=== PATIENT | male | born 1960 | race Two or more races ===

== ENCOUNTER 2024-07-21 10:51 | Emergency (ER) | payer OTHER, MEDICARE ==
[~2024-07-21] VITALS: Ht 177.8 cm; Wt 100.7 kg
[2024-07-21 11:31] LABS: Basophils # (auto) 0 10 ^3/uL (0-0.2); Basophils % (auto) 0.6 % (0.0-2.0); Eosinophils # (auto) 0.1 10 ^3/uL (0-0.8); Eosinophils % (auto) 2.9 % (0.0-7.0); Hematocrit 45.7 % (41.0-53.0); Hemoglobin 15.2 g/dL (13.5-17.5); Lymphocytes # (auto) 1.5 10 ^3/uL (0.4-5.4); Lymphocytes % (auto) 32.4 % (10.0-50.0); Mean Corpuscular Hemoglobin 28.2 pg (28.0-32.0); Mean Corpuscular Hgb Conc. 33.2 g/dL (32.0-36.0); Mean Corpuscular Volume 84.7 fL (80.0-100.0); Monocytes # (auto) 0.4 10 ^3/uL (0-1.3); Monocytes % (auto) 8.9 % (0.0-12.0); Neutrophils # (auto) 2.5 10 ^3/uL (1.6-8.6); Neutrophils % (auto) 55.2 % (37.0-80.0); Nucleated Red Blood Cells % 0.1 %; Platelet Count (auto) 228 10^3/uL (140-450); Red Cell Distribution Width 13.8 % (11.8-14.3); White Blood Cell 4.6 10^3/uL (4.4-10.8)
[2024-07-21 11:58] VITALS: BP 135/83; PULSE 88; RESP 18; TEMP 98.3; O2SAT 99
[2024-07-21 12:05] LABS: Chloride 106 mmol/L (98-107); Potassium 3.6 mmol/L (3.5-5.1); Sodium 143 mmol/L (136-145)
[2024-07-21 12:06] LABS: Anion Gap 8 (5-15); Calcium 10.1 mg/dL (8.7-10.4); Carbon Dioxide 29 mmol/L (20-31)
[2024-07-21 12:11] LABS: BUN/Creatinine Ratio 9.8 (10.0-20.0); Blood Urea Nitrogen 10 mg/dL (9-23); Glucose 99 mg/dL (74-106)
[2024-07-21 12:17] LABS: Urine Bacteria None Seen /hpf (None Seen); Urine WBC None Seen /hpf (0 - 3)
--- NOTE | 2024-07-21 12:18 | DVH ---
EXAM: US TESTICULAR ULTRASOUND HISTORY: swelling COMPARISON: None TECHNIQUE: Grayscale and color Doppler imaging of the scrotum with spectral analysis performed. FINDINGS: RIGHT TESTICLE: Normal in size and echotexture, measuring 4.3 cm in long axis. Doppler interrogatio n is unremarkable. RIGHT EPIDIDYMIS: Unremarkable. LEFT TESTICLE: Normal in size and echotexture, measuring 4.4 cm in long axis. Doppler interrogation is unremarkable. LEFT EPIDIDYMIS: Unremarkable. OTHER: Large left hydrocele with a volume of 432 mL containing floating debris. No scrotal wall marleny a noted. No varicocele is noted. IMPRESSION: 1. Large left hydrocele with a volume of 432 mL . 2. No sonographic evidence of torsion or epididymal orchitis.
[2024-07-21 12:25] LABS: Urine Blood Negative /uL (Negative); Urine Clarity Clear (Clear); Urine Color Light-Yellow (Yellow); Urine Protein, UAD Negative (Negative); Urine Specific Gravity 1.017 (1.001-1.035); Urine Urobilinogen Normal (Negative)
--- NOTE | 2024-07-21 12:35 | ED.PDOC ---
General HPI Comments 64 year old male presents for L scrotal swelling Started months ago after doing [place] Denies Pain Only Swelling Denies urine changes Chief Complaint: Testicle Pain Time Seen by MD: 11:05 Primary Care Provider: JOHNNA Reviewed notes: Nurses Notes, Medications, Allergies Allergies: Coded Allergies: NO KNOWN ALLERGIES (Unverified , 07/21/24) Information Source: Patient Mode of Arrival: Ambulatory Past Medical History PAST MEDICAL HISTORY: Denies Family History Family History: Reviewed,noncontributory to illness Social History Smoker: Non-Smoker Alcohol: Denies ETOH Use Drugs: Denies Drug Use All Other Systems: Reviewed and Negative (Per HPI) Physical Exam General Appearance: No Apparent Distress, Normal HEENT: Normal ENT Inspection, Pharynx Normal, TMs Normal Neck: Full Range of Motion, Non-Tender, Normal, Normal Inspection Respiratory: Chest Non-Tender, Lungs Clear, No Accessory Muscle Use, No Respi ratory Distress, Normal Breath Sounds Cardiovascular: No Edema, No JVD, No Murmur, No Gallop, Normal Peripheral Pulses, Regular Rate/Rhythm Breast Exam: Deferred Gastrointestinal: No Organomegaly, Non Tender, No Pulsatile Mass, Normal Bowel Sounds, Soft Genitalia: Scrotum (L swelling no ttp) Pelvic: Deferred Rectal: Deferred Extremities: No calf tenderness, Normal capillary refill, Normal inspection, Normal range of motion, Non-tender, No pedal edema Musculoskeletal : Apperance: Normal Neurologic: Alert, filter assembler II-XII nml as Tested, No Motor Deficits, Normal Affect, Normal Mood, No Sensory Deficits Cerebellar Function: Normal Reflexes: Normal Skin: Dry, Normal Color, Warm Lymphatic: No Adenopathy Was a procedure done? Was a procedure done?: No Differential Diagnosis Kidney stone (Female): Other Urinary Problem (Male): Epididymitis, Prostatitis X-Ray, Labs, Meds, VS Vital Signs Date Time Temp Pulse Resp B/P (MAP) Pulse Ox O2 Delivery O2 Flow Rate FiO2 07/21/24 11:58 88 18 99 Room Air 07/21/24 11:58 98.3 88 18 135/83 (100) 99 98.3 07/21/24 11:05 98.3 88 18 135/83 (100) 99 Lab Test 07/21/24 11:15 07/21/24 11:06 Range/Units White Blood Count 4.6 4.4-10.8 10^3/uL Red Blood Count 5.40 4.5-5.90 10^6/uL Hemoglobin 15.2 13.5-17.5 g/dL Hematocrit 45.7 41.0-53.0 % Mean Corpuscular Volume 84.7 80.0-100.0 fL Mean Corpuscular Hemoglobin 28.2 28.0-32.0 pg Mean Corpuscular Hemoglobin Concent 33.2 32.0-36.0 g/dL Red Cell Distribution Width 13.8 11.8-14.3 % Platelet Count 228 140-450 10^3/uL Mean Platelet Volume 7.2 6.9-10.8 fL Neutrophils (%) (Auto) 55.2 37.0-80.0 % Lymphocytes (%) (Auto) 32.4 10.0-50.0 % Monocytes (%) (Auto) 8.9 0.0-12.0 % Eosinophils (%) (Auto) 2.9 0.0-7.0 % Basophils (%) (Auto) 0.6 0.0-2.0 % Neutrophils # (Auto) 2.5 1.6-8.6 10 ^3/uL Lymphocytes # (Auto) 1.5 0.4-5.4 10 ^3/uL Monocytes # (Auto) 0.4 0-1.3 10 ^3/uL Eosinophils # (Auto) 0.1 0-0.8 10 ^3/uL Basophils # (Auto) 0 0-0.2 10 ^3/uL Nucleated Red Blood Cells 0.1 % Sodium Level 143 136-145 mmol/L Potassium Level 3.6 3.5-5.1 mmol/L Chloride Level 106 98-107 mmol/L Carbon Dioxide Level 29 20-31 mmol/L Anion Gap 8 5-15 Blood Urea Nitrogen 10 9-23 mg/dL Creatinine 1.02 0.700-1.30 mg/dL Glomerular Filtration Rate Calc 82 >90 mL/min BUN/Creatinine Ratio 9.8 L 10.0-20.0 Serum Glucose 99 74-106 mg/dL Calcium Level 10.1 8.7-10.4 mg/dL Urine Color Light-yellow Yellow Urine Clarity Clear Clear Urine pH 7.0 5.0-9.0 Urine Specific [place] 1.017 1.001-1.035 Urine Protein Negative Negative Urine Ketones Negative Negative Urine Blood Negative Negative /uL Urine Nitrite Negative Negative Urine Bilirubin Negative Negative Urine Urobilinogen Normal Negative mg/dL Urine Leukocyte Esterase Negative Negative /uL Urine RBC <1 0 - 3 /hpf Urine WBC None seen 0 - 3 /hpf Urine Squamous Epithelial Cells None seen <5 /hpf Urine Bacteria None seen None Seen /hpf Urine Glucose Normal Normal mg/dL Chlamydia trachomatis (WAN) Pending Neisseria gonorrhoeae (WAN) Pending X-Ray, Labs, Meds, VS Comment Testicular ultrasound shows trace hydrocele. Ultrasound interpreted by radiologist and reviewed by me. Presentation of symptoms are consistent with hydrocele. Education provided for patient to follow-up with urologist within 24 to 48 hours. Usually hydroceles resolve on their own, no need for surgical intervention. Elevate scrotum to help decrease swelling. Wear jockstrap for support. Take [id number] Tylenol or ibuprofen (take with food) as directed and as needed for pain management. Patient is stable for discharge at this time. External notes reviewed. Test results and diagnostic imaging interpreted. All diagnostic findings, discharge care, education and instructions provided Follow-up with PCP in 2 to 3 days Patient verbalized understanding and agreed to treatment plan Vital signs stable, afebrile, no acute distress noted Patient ambulatory with strong steady gait Advised to return precautions for any new or worsening symptoms, return to ER immediately for re-evaluation Patient is aware that the purpose of this visit was for an acute medical emergency requiring emergent stabilization. Chronic conditions, including malignancies have not been ruled out. Patient is instructed to follow up with PCP as directed and discharge instructions for continued care and workup. If unable to arrange follow-up, patient is to return to the emergency department for reassessment. Patient (parent or legal guardian if applicable) was given verbal and written discharge instructions and acknowledges understanding. Time of 1ST Reevaluation: 12:30 Reevaluation 1ST: Improved Patient Education/Counseling: Diagnosis, Treatment Family Education/Counseling: Diagnosis, Treatment Departure 1 Departure Time of Disposition: 12:41 Impression: Primary Impression: Hydrocele in adult Disposition: 01 HOME / SELF CARE / HOMELESS Condition: Stable Discharged With: Self Critical Care Note Critical Care Time?: No Stability Stability form required: No Heart Score Heart Score: Heart Score Response (Comments) Value History N/A 0 EKG N/A 0 Age N/A 0 Risk Factors N/A 0 Troponin N/A 0 Total 0 FRANKLIN MARTINS NP Jul 21, 2024 12:35
[2024-07-23 10:06] LABS: Chlamydia Trachomatis, NAA Negative (Negative); Neisseria gonorrhoeae, NAA Negative (Negative)
== END 2024-07-21 13:09 | disposition home or self-care (01) ==
LOC: ER 10:51
DX: N43.3 Hydrocele, unspecified (principal)
CPT/HCPCS: 36415; 76870; 80048; 81001; 85025

== ENCOUNTER 2025-03-07 06:29 | Inpatient (IN) | payer OTHER, MEDICARE ==
[~2025-03-07] VITALS: Ht 177.8 cm; Wt 104.6 kg
--- NOTE | 2025-03-07 06:51 | ED.PDOC ---
GI ASSESSMENT HPI Comments 64 y/o M, with PMHx of HTN presents to the ED for CC of abdominal pain. Patient states, he has been experiencing mid-abdominal pain x1day. Patient reports, pain to be tight in nature feeling as if there were a waist band around his stomach. Patient comments, on having a normal bowel movement as of earlier this morning (03/07/25). Patient denies nausea, vomiting, or diarrhea. Chief Complaint: Abdominal Pain Time Seen by MD: 06:45 Primary Care Provider: JOHNNA Reviewed Notes: Nurses Notes, Medications, Allergies Allergies: Coded Allergies: NO KNOWN ALLERGIES (Unverified , 07/21/24) Information Source: Patient Mode of Arrival: Ambulatory Timing: Days Duration: Since onset Prehospital treatment: None Quality: Other (tightness) Vomitus: None Stool: Normal Severity: Moderate Recent: None Recent Hx of: None Pain Location: Diffuse Modifying Factors: Nothing Associated sign and symptoms: Abdominal Pain Past Medical History PAST MEDICAL HISTORY: HTN Surgical History: Denies all surgeries Family History Family History: Reviewed,noncontributory to illness Social History Smoker: Non-Smoker Alcohol: Denies ETOH Use Drugs: Denies Drug Use Lives In: Home Constitutional: denies: chills, diaphoresis, fatigue, fever, malaise, sweats, weakness, others EENTM: denies: blurred vision, double vision, ear bleeding, ear discharge, ear drainage, ear pain, ear ringing, eye pain, eye redness, hearing loss, mouth pain, mouth swelling, nasal discharge, nose bleeding, nose congestion, nose pain, photophobia, tearing, throat pain, throat swelling, voice changes, others Respiratory: denies: cough, hemoptysis, orthopnea, SOB at rest, shortness of breath, SOB with excertion, stridor, wheezing, others Cardiovascular: denies: chest pain, dizzy spells, diaphoresis, Dyspnea on exertion, edema, irregular heart beat, left arm pain, lightheadedness, palpitations, PND, syncope, others Gastrointestinal: reports: abdominal pain; denies: abdomen distended, blood streaked bowels, constipated, diarrhea, dysphagia, difficulty swallowing, hematemesis, melena, nausea, poor appetite, poor fluid intake, rectal bleeding, rectal pain, vomiting, others Genitourinary: denies: burning, dysuria, flank pain, frequency, hematuria, incontinence, penile discharge, penile sore, pain, testicle pain, testicle swelling, urgency, others Neurological: denies: dizziness, fainting, headache, left sided numbness, left sided weakness, numbness, paresthesia, pre-existing deficit, right sided numbness, right sided weakness, seizure, speech problems, tingling, tremors, weakness, others Musculoskeletal: denies: back pain, gout, joint pain, joint swelling, muscle pain, muscle stiffness, neck pain, others Integumetry: denies: bruises, change in color, change in hair/nails, dryness, laceration, lesions, lumps, rash, wounds, others Allergic/Immunocompromised: denies: Difficulty Healing, Frequent Infections, Hives, Itching, others Hematologic/Lymphatic: denies: anemia, blood clots, easy bleeding, easy bruising, swollen glands, others Endocrine: denies: excessive hunger, excessive sweating, excessive thirst, excessive urination, flushing, intolerance to cold, intolerance to heat, un explained weight gain, unexplained weight loss, others Psychiatric: denies: anxiety, bipolar disorder, depression, hopeless, panic disorder, schizophrenia, sleepless, suicidal, others All Other Systems: Reviewed and Negative Physical Exam General Appearance: No Apparent Distress, Normal HEENT: Normal ENT Inspection, Pharynx Normal Neck: Full Range of Motion, Non-Tender, Normal, Normal Inspection Respiratory: Chest Non-Tender, Lungs Clear, No Accessory Muscle Use, No Respiratory Distress, Normal Breath Sounds Cardiovascular: No Edema, No Murmur, No Gallop, Normal Peripheral Pulses, Regular Rate/Rhythm Breast Exam: Deferred Gastrointestinal: Diffuse, No Organomegaly, No Pulsatile Mass, Normal Bowel Sounds, Tenderness Genitalia: Deferred Pelvic: Deferred Rectal: Deferred Extremities: No calf tenderness, Normal capillary refill, Normal inspection, Normal range of motion, Non-tender, No pedal edema Musculoskeletal : Apperance: Normal Neurologic: Alert, lining printer II-XII nml as Tested, No Motor Deficits, Normal Affect, Normal Mood, No Sensory Deficits Cerebellar Function: Normal Reflexes: Normal Skin: Dry, Normal Color, Warm Lymphatic: No Adenopathy Was a procedure done? Was a procedure done?: No GI differential Dx Differential Diagnosis: Bowel Obstruction, Constipation, Diverticular disease, Gastritis/PUD, Gastroenteritis, Inflammatory BD, Electrolyte Imbalance, Food Poisoning, Bacterial, Viral X-Ray, Labs, Meds, VS Vital Signs Date Time Temp Pulse Resp B/P (MAP) Pulse Ox O2 Delivery O2 Flow Rate FiO2 03/07/25 06:59 97 18 142/85 03/07/25 06:52 97 18 96 Room Air* 0 21 03/07/25 06:51 97.8 97 18 142/85 (104) 96 97.8 03/07/25 06:35 97.8 97 18 133/88 (103) 96 97.8 Lab Test 03/07/25 07:00 Range/Units White Blood Count 10.0 4.4-10.8 10^3/uL Red Blood Count 5.91 H 4.5-5.90 10^6/uL Hemoglobin 16.4 13.5-17.5 g/dL Hematocrit 49.1 41.0-53.0 % Mean Corpuscular Volume 83.1 80.0-100.0 fL Mean Corpuscular Hemoglobin 27.7 L 28.0-32.0 pg Mean Corpuscular Hemoglobin Concent 33.3 32.0-36.0 g/dL Red Cell Distribution Width 14.8 H 11.8-14.3 % Platelet Count 242 140-450 10^3/uL Mean Platelet Volume 7.6 6.9-10.8 fL Neutrophils (%) (Auto) 82.6 H 37.0-80.0 % Lymphocytes (%) (Auto) 12.4 10.0-50.0 % Monocytes (%) (Auto) 4.3 0.0-12.0 % Eosinophils (%) (Auto) 0.4 0.0-7.0 % Basophils (%) (Auto) 0.3 0.0-2.0 % Neutrophils # (Auto) 8.3 1.6-8.6 10 ^3/uL Lymphocytes # (Auto) 1.2 0.4-5.4 10 ^3/uL Monocytes # (Auto) 0.4 0-1.3 10 ^3/uL Eosinophils # (Auto) 0 0-0.8 10 ^3/uL Basophils # (Auto) 0 0-0.2 10 ^3/uL Nucleated Red Blood Cells 0.1 % Sodium Level 142 136-145 mmol/L Potassium Level 3.4 L 3.5-5.1 mmol/L Chloride Level 104 98-107 mmol/L Carbon Dioxide Level 27 20-31 mmol/L Anion Gap 11 5-15 Blood Urea Nitrogen 10 9-23 mg/dL Creatinine 1.11 0.700-1.30 mg/dL Glomerular Filtration Rate Calc 74 >90 mL/min BUN/Creatinine Ratio 9.0 L 10.0-20.0 Serum Glucose 125 H 74-106 mg/dL Calcium Level 10.2 8.7-10.4 mg/dL Total Bilirubin 0.6 0.2-1.0 mg/dL Aspartate Amino Transferase (AST) 25 13-40 U/L Alanine Aminotransferase (ALT) 21 7-40 U/L Alkaline Phosphatase 132 H 46-116 U/L Troponin I High Sensitivity 3 L </=54 ng/L Total Protein 8.3 H 5.7-8.2 g/dL Albumin 5.0 H 3.2-4.8 g/dL Lipase 34 12-53 U/L Current Medications Medications (Trade) Dose Ordered Sig/Giovani Route Start Time Stop Time Status Last Admin Sodium Chloride 1,000 ml @ 1,000 mls/hr Q1H ONCE IV 03/07/25 06:45 03/07/25 07:44 DC 03/07/25 06:59 Ondansetron HCl (Zofran) 4 mg ONCE ONCE IV 03/07/25 06:45 03/07/25 06:47 DC 03/07/25 06:58 Morphine Sulfate 4 mg ONCE ONCE IV 03/07/25 06:45 03/07/25 06:47 DC 03/07/25 06:59 [place] [address] Ph: [phone] DIAGNOSTIC IMAGING Diagnostic Imaging Report : [id number] Signed PATIENT: RERE MERCEDES ACCT: [id number] UNIT: [id number] : 1960 LOC: ER ROOM / BED: / AGE / SEX: 64 / M ADM STATUS: REG ER SERVICE ORDERING PHYSICIAN: CHASITY MATTHEW MD PROCEDURE(s): CXRP - CHEST PORTABLE REASON: abdominal pain ORDER NUMBER(s): [id number], ACCESSION NUMBER(s): [id number] CLINICAL INFORMATION: Pain. TECHNIQUE: Single frontal chest radiograph was obtained. COMPARISON: None FINDINGS: Lungs: Clear. Cardiac: Heart size is within normal limits. Pulmonary vasculature: Unremarkable. Mediastinum/pam: Unremarkable. Bones: No acute osseous abnormality identified. Other: No other significant findings. IMPRESSION: No evidence of acute disease in the chest. ATED BY: MONROE QUACH DO DICTATED DATE/TIME: 03/07/25730 SIGNED BY: MONROE QUACH DO SIGNED DATE/TIME: 03/07/25730 CC: [place] [address] Ph: [phone] DIAGNOSTIC IMAGING Diagnostic Imaging Report : [id number] Signed PATIENT: RERE MERCEDES ACCT: [id number] UNIT: [id number] : 1960 LOC: ER ROOM / BED: / AGE / SEX: 64 / M ADM STATUS: REG ER SERVICE 4 ORDERING PHYSICIAN: CHASITY MATTHEW MD PROCEDURE(s): ABPLIV - CT AB PEL WITH IV CON ONLY REASON: abdominal pain ORDER NUMBER(s): [id number], ACCESSION NUMBER(s): [id number] Exam: CT CT AB PEL WITH IV CON ONLY History: abdominal pain Comparison Study: None Contrast: Type of contrast: Omnipaque 300 Contrast injected: 100 mL Contrast wasted: 0 TECHNIQUE: CT of the abdomen pelvis was performed with intravenous contrast. Coronal and sagittal reformatted images are submitted. Radiation Dose Information: CT Dose: CTDI volume is 16.98 mGy. Dose-length product is 1199.64 mGy*cm FINDINGS: Lung Bases: No acute or significant lung base finding. Normal heart size. No pleural or pericardial effusion. Liver: The liver is normal in size. No focal lesions. Normal hepatic vascular enhancement. Gallbladder and Biliary Tree: The gallbladder is unremarkable. No biliary ductal dilatation. Spleen: Unremarkable. Pancreas: The pancreas is normal in appearance without focal lesions or abnormal enhancement. Adrenal Glands: Unremarkable Kidneys: Kidneys demonstrate normal symmetric enhancement without focal lesions, calculi or hydronephrosis. Bladder: Unremarkable Bowel: Fluid distention of the stomach. There are dilated fluid-filled small bowel loops with mesenteric fat stranding and mesenteric edema. There is a abrupt transition to collapsed distal small bowel loops in the right lower quadrant where there is fecalized small bowel loop. Findings are consistent with high-grade small bowel obstruction. Colon is underdistended. No findings to suggest acute appendicitis. Peritoneum: No pneumoperitoneum. No ascites. Lymphadenopathy: No mesenteric, retroperitoneal or periportal lymphadenopathy. Abdominal Wall and Mesentery: Unremarkable. Vasculature: The visualized abdominal aorta is normal in size and caliber. Abdominal and pelvic vessels demonstrate normal enhancement. Pelvic Organs: Very large left hydrocele. There is a cystic structure within the scrotal sac and calcification. Musculoskeletal: No aggressive focal bony lesions, acute fractures or dislocation. Soft tissues: Unremarkable. IMPRESSION: 1. High-grade small bowel obstruction with transition in the right lower quadrant adjacent to the fecalized small bowel loop. Mesenteric edema. 2. Very large left hydrocele containing a possible cystic mass. Testicular ultr asound recommended. All CT scans at this medical facility are performed using dose modulation techniques as appropriate to a performed exam including the following: Automated exposure control was utilized; adjustment of the MA and/or KV according to patie nt size; and use of iterative reconstruction technique. ATED BY: SHAN MERCEDES MD DICTATED DATE/TIME: 03/07/25839 SIGNED BY: SHAN MERCEDES MD SIGNED DATE/TIME: 03/07/25839 CC: Time of 1ST Reevaluation: 07:15 Reevaluation 1ST: Unchanged Patient Education/Counseling: Diagnosis, Treatment Family Education/Counseling: No Family Present SEPSIS Sepsis Screen Physician Orders Ct Ab Pel With Iv Con Only (03/07/25 06:45) Chest Portable (03/07/25 06:45) Urinalysis (03/07/25 06:45) Ng To Lis (03/07/25 08:50) Place Ng (03/07/25 08:50) * Surgical Consult (03/07/25 ) NS (03/07/25 09:00) Ondansetron Hcl (Zofran) (03/07/25 09:00) Morphine Sulfate Injection (03/07/25 09:00) Testicular Ultrasound (03/07/25 08:50) Vital Signs Date Time Temp Pulse Resp B/P (MAP) Pulse Ox O2 Delivery O2 Flow Rate FiO2 03/07/25 06:59 97 18 142/85 03/07/25 06:52 97 18 96 Room Air* 0 21 03/07/25 06:51 97.8 97 18 142/85 (104) 96 97.8 03/07/25 06:35 97.8 97 18 133/88 (103) 96 97.8 Laboratory Tests Test 03/07/25 07:00 White Blood Count 10.0 10^3/uL (4.4-10.8) Medications Medications Dose Ordered Sig/Giovani Route Start Time Stop Time Status Last Admin Dose Admin Morphine Sulfate 4 mg ONCE ONCE IV 03/07/25 06:45 03/07/25 06:47 DC 03/07/25 06:59 Ondansetron HCl 4 mg ONCE ONCE IV 03/07/25 06:45 03/07/25 06:47 DC 03/07/25 06:58 Sodium Chloride 1,000 ml @ 1,000 mls/hr Q1H ONCE IV 03/07/25 06:45 03/07/25 07:44 DC 03/07/25 06:59 Departure 1 Departure Time of Disposition: 08:53 (Patient presented with abdominal pain that was concerning for possible appendicits, gastritis, cholecystitis, colitis, gastroenteritis, sbo, or orther possible surgical emergency. Data: 1. I ordered and reviewed the result of at least 3 labs including a CBC, BMP, and Urinalysis. 2. I independently interpreted the following tests: CT Abdoment and Pelvis is concerning for small bowel obstruction .Risk:This patient has a high risk of morbidity due to further diagnostic testing or treatment and may suffer from an acute abdominal process disorder. Workup reveals small-bowel obstruction and patient should be admitted for further workup. and possible expert consultation. ) Impression: Primary Impression: Small bowel obstruction Additional Impression: Testicular mass Disposition: ADMITTED INPATIENT Admit to: Med Surg Condition: Guarded Critical Care Note Critical Care Time?: Yes Critical care comment: Intractable abdominal pain Authorized and Performed by: Chasity Matthew MD Total critical care time: Approximately 44 minutes Due to a high probability of clinically significant, life threatening deterioration, the patient required my highest level of preparedness to intervene emergently and I personally spent this critical care time directly and personally managing the patient. This critical care time included obtaining a history; examining the patient; pulse oximetry; ordering and review of studies; arranging urgent treatment with development of a management plan; evaluation of patient's response to treatment; frequent reassessment; and, discussions with other providers. This critical care time was performed to assess and manage the high probability of imminent, life-threatening deterioration that could result in multi-organ failure. It was exclusive of separately billable procedures and treating other patients and teaching time. Please see my other sections and the rest of the note for further information on patient assessment and treatment. Stability Stability form required: No Heart Score Heart Score: Heart Score Response (Comments) Value History N/A 0 EKG N/A 0 Age N/A 0 Risk Factors N/A 0 Troponin N/A 0 Total 0 I personally scribed for CHASITY MATTHEW MD ([email or web address]) on 03/07/25 at 06:51. Electronically submitted by Ayleen Jordan ([email or web address]). I personally scribed for CHASITY MATTHEW MD ([email or web address]) on 03/07/25 at 07:36. Electronically submitted by Ayleen Jordan ([email or web address]). I personally scribed for CHASITY MATTHEW MD ([email or web address]) on 03/07/25 at 08:48. Electronically submitted by Ayleen Jordan ([email or web address]). CHASITY MATTHEW MD Mar 07, 2025 06:51
[2025-03-07 06:52] VITALS: PULSE 97; RESP 18; O2SAT 96
[2025-03-07] MEDS: ONDANSETRON HCL 4 MG/2 ML VIAL IV ONE ×2 (06:58→09:00)
[2025-03-07] MEDS: SODIUM CHLORIDE 0.9% 1,000 ML IV ONE ×2 (06:59→09:00)
[2025-03-07] MEDS: MORPHINE SULFATE 4 MG/ML SYR/VIAL IV ONE ×2 (06:59→09:00)
[2025-03-07 07:18] LABS: Hematocrit 49.1 % (41.0-53.0); Hemoglobin 16.4 g/dL (13.5-17.5); Mean Corpuscular Hemoglobin 27.7 pg (28.0-32.0); Mean Corpuscular Volume 83.1 fL (80.0-100.0); Nucleated Red Blood Cells % 0.1 %
[2025-03-07 07:25] LABS: Alanine Aminotransferase 21 U/L (7-40); Anion Gap 11 (5-15); BUN/Creatinine Ratio 9.0 (10.0-20.0); Blood Urea Nitrogen 10 mg/dL (9-23); Calcium 10.2 mg/dL (8.7-10.4); Carbon Dioxide 27 mmol/L (20-31); Chloride 104 mmol/L (98-107); Lipase 34 U/L (12-53); Sodium 142 mmol/L (136-145)
[2025-03-07 07:26] LABS: Bilirubin, Total 0.6 mg/dL (0.2-1.0)
[2025-03-07 07:31] LABS: Albumin 5.0 g/dL (3.2-4.8); Alkaline Phosphatase 132 U/L (46-116); Glucose 125 mg/dL (74-106); Potassium 3.4 mmol/L (3.5-5.1); Total Protein 8.3 g/dL (5.7-8.2)
--- NOTE | 2025-03-07 07:34 | DVH ---
CLINICAL INFORMATION: Pain. TECHNIQUE: Single frontal chest radiograph was obtained. COMPARISON: None FINDINGS: Lungs: Clear. Cardiac: Heart size is within normal limits. Pulmonary vasculature: Unremarkable. Mediastinum/pam: Unremarkable. Bones: No acute osseous abnormality identified. Other: No other significant findings. IMPRESSION: No evidence of acute disease in the chest.
[2025-03-07] MEDS: IOHEXOL 300 MG/ML 100ML BOTTLE IJ ONE (07:44)
--- NOTE | 2025-03-07 08:42 | DVH ---
Exam: CT CT AB PEL WITH IV CON ONLY History: abdominal pain Comparison Study: None Contrast: Type of contrast: Omnipaque 300 Contrast injected: 100 mL Contrast wasted: 0 TECHNIQUE: CT of the abdomen pelvis was performed with intravenous contrast. Coronal and sagittal re formatted images are submitted. Radiation Dose Information: CT Dose: CTDI volume is 16.98 mGy. Dose-length product is 1199.64 mGy*cm FINDINGS: Lung Bases: No acute or significant lung base finding. Normal heart size. No pleural or pericardial effusion. Liver: The liver is normal in size. No focal lesions. Normal hepatic vascular enhancement. Gallbladder and Biliary Tree: The gallbladder is unremarkable. No biliary ductal dilatation. Spleen: Unremarkable. Pancreas: The pancreas is normal in appearance without focal lesions or abnormal enhancement. Adrenal Glands: Unremarkable Kidneys: Kidneys demonstrate normal symmetric enhancement without focal lesions, calculi or hydroneph rosis. Bladder: Unremarkable Bowel: Fluid distention of the stomach. There are dilated fluid-filled small bowel loops with mesent humaira fat stranding and mesenteric edema. There is a abrupt transition to collapsed distal small bowel loops in the right lower quadrant where there is fecalized small bowel loop. Findings are consisten t with high-grade small bowel obstruction. Colon is underdistended. No findings to suggest acute appe ndicitis. Peritoneum: No pneumoperitoneum. No ascites. Lymphadenopathy: No mesenteric, retroperitoneal or periportal lymphadenopathy. Abdominal Wall and Mesentery: Unremarkable. Vasculature: The visualized abdominal aorta is normal in size and caliber. Abdominal and pelvic vess els demonstrate normal enhancement. Pelvic Organs: Very large left hydrocele. There is a cystic structure within the scrotal sac and calc ification. Musculoskeletal: No aggressive focal bony lesions, acute fractures or dislocation. Soft tissues: Unremarkable. IMPRESSION: 1. High-grade small bowel obstruction with transition in the right lower quadrant adjacent to the fec alized small bowel loop. Mesenteric edema. 2. Very large left hydrocele containing a possible cystic mass. Testicular ultrasound recommended. All CT scans at this medical facility are performed using dose modulation techniques as appropriate t o a performed exam including the following: Automated exposure control was utilized; adjustment of th e MA and/or KV according to patient size; and use of iterative reconstruction technique.
[2025-03-07 09:11] LABS: Urine Budding Yeast FEW /hpf (None Seen); Urine Protein, UAD Negative (Negative)
--- NOTE | 2025-03-07 10:11 | DVH ---
ULTRASOUND OF SCROTUM AND CONTENTS. INDICATION: better evaluate ct findings COMPARISON: US TESTICULAR ULTRASOUND on DOS: 07/21/24 TECHNIQUE: Multiple real-time grayscale sonographic and color and duplex Doppler images of the scrotu m and its contents were obtained. FINDINGS: The right testicle measures 2.8 x 3.0 x 4.1 cm. The left testicle measures 5.1 x 2.6 x 3.0 cm. Both testicles demonstrate homogeneous echotexture without evidence of focal lesions. The right epididymis measures 1.7 cm. The left epididymis measures 1.1 cm. Subsequent color and duplex Doppler interrogation of the testes demonstrated symmetric normal vascula r flow to both testicles. No focal areas of hyperemia were seen. Severe left hydrocele. IMPRESSION: Severe left hydrocele.
[2025-03-07] MEDS ORDERED: hydrALAZINE HCL 20 MG/ML VL IV PRN (11:00)
[2025-03-07] MEDS ORDERED: DOCUSATE SOD 100 MG CAP PO PRN (11:00)
[2025-03-07] MEDS ORDERED: ACETAMINOPHEN 650 MG RECT SUPP PR PRN (11:00)
[2025-03-07] MEDS: SODIUM CHLORIDE 0.9% 1,000 ML IV SCH (11:00)
--- NOTE | 2025-03-07 11:06 | DVHHP2 ---
History of Present Illness Reason for Visit: Abdominal pain History of Present Illness Navin Stiles is a 64-year-old male with past medical history of hypertension, and hyperlipidemia, who came to the hospital for abdominal pain. Patient states his abdominal pain began yesterday about noon. The pain was mostly epigastric at that time. Around 3-4 he was feeling better, then the pain returned after he ate dinner. When the pain returned it was more intense and radiated across his entire abdomen. This morning he was going to head to [place] for a dental appointment, but came to the ER instead due to the pain. Denies any nausea or vomiting. Patient also has severe left hydrocele. He was seen here in July of 2024 due to the enlarged testicle and was told to follow up out patient. The testicle remain swollen. He states he did see urology through the OR and he follows up with them again in June. Cardiovascular: HTN, hyperipidemia Smoke: No ALCOHOL: rare Drugs: None Lives: with Family Domestic Violence: Neg Review of Systems Constitutional: Yes: Weakness; No: Fever, Chills, Sweats, Malaise, Other Eyes: No: Pain, Vision change, Conjunctivae inflammation, Eyelid inflammation, Other, Redness ENT: No: Ear pain, Ear discharge, Nose pain, Nose discharge, Nose congestion, Mouth pain, Mouth swelling, Throat pain, Throat swelling, Other Respiratory: No: Cough, Dry, Shortness of breath, SOB with excertion, Wheezing, Hemoptysis, Pleuritic Pain, Sputum, Wheezing, Other Cardiovascular: No: Chest Pain, Palpitations, Orthopnea, Paroxysmal Noc. Dyspnea, Edema, Lt Headedness, Other Gastrointestinal: Abdominal Pain; No: Nausea, Vomiting, Diarrhea, Constipation, Melena, Hematochezia, Other Genitourinary: No Dysuria, No Frequency, No Incontinence, No Hematuria, No Retention, No Other Musculoskeletal: No: other, neck pain, shoulder pain, arm pain, back pain, hand pain, leg pain, foot pain Skin: No: Rash, Lesions, Jaundice, Bruising, Other Neurological: No: Weakness, Numbness, Incoordination, Change in speech, Confusion, Seizures, Other Allergies: Coded Allergies: NO KNOWN ALLERGIES (Unverified , 07/21/24) Medications Current Medications Medications Dose Ordered Sig/Giovani Route Start Time Stop Time Status Last Admin Dose Admin Sodium Chloride 1,000 ml @ 75 mls/hr [id number] IV 03/07/25 11:00 UNV Ondansetron HCl 4 mg Q4HP PRN IV 03/07/25 11:00 UNV Docusate Sodium 100 mg BIDPRN PRN PO 03/07/25 11:00 UNV Morphine Sulfate 2 mg Q4HPRN PRN IV 03/07/25 11:00 UNV Acetaminophen 650 mg Q6HP PRN LA 03/07/25 11:00 UNV Metronidazole 100 ml @ 100 mls/hr Q8HR IV 03/07/25 14:00 UNV Exam Vital Signs Vital Signs Date Time Temp Pulse Resp B/P (MAP) Pulse Ox O2 Delivery O2 Flow Rate FiO2 03/07/25 09:30 97.7 85 20 136/86 (103) 95 97.7 03/07/25 06:52 Room Air* 0 21 General Appearance: Alert, Oriented X3, Cooperative, mild distress HEENT: Atraumatic, PERRLA, Mucous membr. moist/pink Respiratory: Clear to auscultation, Normal air movement Cardiovascular: Regular rate, Normal S1, Normal S2, No murmurs Abdominal: Other (Hypoactive bowel sounds, abdominal pain) Extremities: No clubbing, No cyanosis, No edema, Normal pulses, No tenderness/swelling Skin: No rashes, No breakdown, No significant lesion Neuro: Normal gait, Normal speech, Strength at 5/5 X4 ext, Normal tone, Sensation intact Psych/Mental Status: Mental status NL, Mood NL Labs/Xrays Labs Test 03/07/25 07:00 03/07/25 06:40 Range/Units White Blood Count 10.0 4.4-10.8 10^3/uL Red Blood Count 5.91 H 4.5-5.90 10^6/uL Hemoglobin 16.4 13.5-17.5 g/dL Hematocrit 49.1 41.0-53.0 % Mean Corpuscular Volume 83.1 80.0-100.0 fL Mean Corpuscular Hemoglobin 27.7 L 28.0-32.0 pg Mean Corpuscular Hemoglobin Concent 33.3 32.0-36.0 g/dL Red Cell Distribution Width 14.8 H 11.8-14.3 % Platelet Count 242 140-450 10^3/uL Mean Platelet Volume 7.6 6.9-10.8 fL Neutrophils (%) (Auto) 82.6 H 37.0-80.0 % Lymphocytes (%) (Auto) 12.4 10.0-50.0 % Monocytes (%) (Auto) 4.3 0.0-12.0 % Eosinophils (%) (Auto) 0.4 0.0-7.0 % Basophils (%) (Auto) 0.3 0.0-2.0 % Neutrophils # (Auto) 8.3 1.6-8.6 10 ^3/uL Lymphocytes # (Auto) 1.2 0.4-5.4 10 ^3/uL Monocytes # (Auto) 0.4 0-1.3 10 ^3/uL Eosinophils # (Auto) 0 0-0.8 10 ^3/uL Basophils # (Auto) 0 0-0.2 10 ^3/uL Nucleated Red Blood Cells 0.1 % Sodium Level 142 136-145 mmol/L Potassium Level 3.4 L 3.5-5.1 mmol/L Chloride Level 104 98-107 mmol/L Carbon Dioxide Level 27 20-31 mmol/L Anion Gap 11 5-15 Blood Urea Nitrogen 10 9-23 mg/dL Creatinine 1.11 0.700-1.30 mg/dL Glomerular Filtration Rate Calc 74 >90 mL/min BUN/Creatinine Ratio 9.0 L 10.0-20.0 Serum Glucose 125 H 74-106 mg/dL Calcium Level 10.2 8.7-10.4 mg/dL Total Bilirubin 0.6 0.2-1.0 mg/dL Aspartate Amino Transferase (AST) 25 13-40 U/L Alanine Aminotransferase (ALT) 21 7-40 U/L Alkaline Phosphatase 132 H 46-116 U/L Troponin I High Sensitivity 3 L </=54 ng/L Total Protein 8.3 H 5.7-8.2 g/dL Albumin 5.0 H 3.2-4.8 g/dL Lipase 34 12-53 U/L Urine Color Light-yellow Yellow Urine Clarity Clear Clear Urine pH 7.5 5.0-9.0 Urine Specific [place] 1.049 H 1.001-1.035 Urine Protein Negative Negative Urine Ketones Negative Negative Urine Blood Negative Negative /uL Urine Nitrite Negative Negative Urine Bilirubin Negative Negative Urine Urobilinogen Normal Negative mg/dL Urine Leukocyte Esterase Negative Negative /uL Urine RBC 2 0 - 3 /hpf Urine Microscopic WBC 3 0-3 /HPF Urine Squamous Epithelial Cells Few <5 /hpf Urine Bacteria None seen None Seen /hpf Urine Mucus Few None Seen Urine Yeast (Budding) Few None Seen /hpf Urine Glucose Normal Normal mg/dL Exam: CT CT AB PEL WITH IV CON ONLY FINDINGS: Lung Bases: No acute or significant lung base finding. Normal heart size. No pleural or pericardial effusion. Liver: The liver is normal in size. No focal lesions. Normal hepatic vascular enhancement. Gallbladder and Biliary Tree: The gallbladder is unremarkable. No biliary ductal dilatation. Spleen: Unremarkable. Pancreas: The pancreas is normal in appearance without focal lesions or abnormal enhancement. Adrenal Glands: Unremarkable Kidneys: Kidneys demonstrate normal symmetric enhancement without focal lesions, calculi or hydronephrosis. Bladder: Unremarkable Bowel: Fluid distention of the stomach. There are dilated fluid-filled small bowel loops with mesenteric fat stranding and mesenteric edema. There is a abrupt transition to collapsed distal small bowel loops in the right lower quadrant where there is fecalized small bowel loop. Findings are consistent with high-grade small bowel obstruction. Colon is underdistended. No findings to suggest acute appendicitis. Peritoneum: No pneumoperitoneum. No ascites. Lymphadenopathy: No mesenteric, retroperitoneal or periportal lymphadenopathy. Abdominal Wall and Mesentery: Unremarkable. Vasculature: The visualized abdominal aorta is normal in size and caliber. Abdominal and pelvic vessels demonstrate normal enhancement. Pelvic Organs: Very large left hydrocele. There is a cystic structure within the scrotal sac and calcification. Musculoskeletal: No aggressive focal bony lesions, acute fractures or dislocation. Soft tissues: Unremarkable. IMPRESSION: 1. High-grade small bowel obstruction with transition in the right lower quadrant adjacent to the fecalized small bowel loop. Mesenteric edema. 2. Very large left hydrocele containing a possible cystic mass. Testicular ultrasound recommended. TECHNIQUE: Single frontal chest radiograph was obtained. FINDINGS: Lungs: Clear. Cardiac: Heart size is within normal limits. Pulmonary vasculature: Unremarkable. Mediastinum/pam: Unremarkable. Bones: No acute osseous abnormality identified. Other: No other significant findings. IMPRESSION: No evidence of acute disease in the chest. ULTRASOUND OF SCROTUM AND CONTENTS. FINDINGS: The right testicle measures 2.8 x 3.0 x 4.1 cm. The left testicle measures 5.1 x 2.6 x 3.0 cm. Both testicles demonstrate homogeneous echotexture without evidence of focal lesions. The right epididymis measures 1.7 cm. The left epididymis measures 1.1 cm. Subsequent color and duplex Doppler interrogation of the testes demonstrated symmetric normal vascular flow to both testicles. No focal areas of hyperemia were seen. Severe left hydrocele. IMPRESSION: Severe left hydrocele. Assessment/Plan Assessment/Plan Assessment: Small bowel obstruction, Severe left hydrocele, Hypertension, Hyperlipidemia, Plan: Admit to Med-Surg, Surgical consult, Urology consult, NG tube to LIS, NPO, PT/PTT, Chest X-ray, Home medications held due to NPO, Plan discussed with: Patient, Spouse My Orders Orders - IBRAHIMA LEMA Procedure Category Date Status Time Admit ADMIT 03/07/25 Transmitted 10:46 Code Status CODE 03/07/25 Transmitted 10:46 Sodium Chloride 0.9% PHA 03/07/25 Logged 11:00 Ondansetron Hcl PHA 03/07/25 Logged (Zofran) 11:00 Docusate Sodium PHA 03/07/25 Logged Capsule (Colace 11:00 Complete Blood Count LAB 03/08/25 Verified 04:00 Comprehensive LAB 03/08/25 Verified Metabolic Panel 04:00 Npo (Nothing By DIET 03/07/25 Transmitted Mouth) Diet Lunch Condition: Critical NINA 03/07/25 In Process 10:46 Morphine Sulfate PHA 03/07/25 Logged Injection 11:00 Acetaminophen PHA 03/07/25 Logged Suppository (Tylenol 11:00 Metronidazole PHA 03/07/25 Logged 500mg/100ml (Flagyl 14:00 PTPTT LAB 03/07/25 Logged 10:49 * Urology Consult CONS 03/07/25 Transmitted 10:50 Date of Service: Mar 07, 2025 Billing Provider: IBRAHIMA LEMA Common Visit Codes: 83626-PRXTUEA INP/OBS CARE (HIGH) IBRAHIMA LEMA Mar 07, 2025 11:06
[2025-03-07 11:34] LABS: INR 0.95 (0.9-1.15); Partial Thromboplastin Time 26.5 SEC (24.5-34.5); Prothrombin Time 10.1 sec (9.3-11.8)
--- NOTE | 2025-03-07 11:46 | DVH ---
CHEST RADIOGRAPH Indication: NG TUBE PLACEMENT Technique: Single frontal view of the chest was obtained COMPARISON: XY CHEST PORTABLE on DOS: 03/07/25 FINDINGS: Lines and Tubes: Nasogastric tube in satisfactory position Lungs: Clear Pleura: No effusion. No pneumothorax. Cardiomediastinal contours: Unremarkable Bones: Unremarkable IMPRESSION: Nasogastric tube in satisfactory position.
[2025-03-07 12:00] VITALS: PULSE 92; RESP 15; O2SAT 97
--- NOTE | 2025-03-07 13:36 | DVHINCON2 ---
Date of service: Mar 07, 2025 Referring Physician Hospitalist Reason for Consultation large left hydrocele History of Present Illness History Source: Patient, RN Notes, MD Notes, Old Records Exam Limitations: No limitations HPI 64 yo male admitted for bowel obstruction. Pt has hx of large left symptomatic hydrocele for the past year and is pending reevaluation in June at the [facility]. He has been wearing scrotal support for months. There has been no improvement. I offered to aspirate it at the bedside for symptom relief. Pt is aware that it is highly likely to recur and this is not definitive management. He verbalized und erstanding and asked that I proceed. Imaging was reviewed and there is no evidence of hernia or bowel contents within the scrotum. patient does not take any anticoagulation. After appropriate positioning of the scrotum on towel roll the genitalia was cleansed with betadine and an 18g angio cath was used to aspirate 850 mls of serous fluid. there was no blood loss. pt tolerated the procedure exceptionally well and reported immediate relief. Primary RN at the bedside for assistance. Review of Systems Gastrointestinal: Abdominal Pain H&P Exam Vital Signs Vital Signs Date Time Temp Pulse Resp B/P (MAP) Pulse Ox O2 Delivery O2 Flow Rate FiO2 03/07/25 11:30 88 18 147/77 (100) 95 03/07/25 09:30 97.7 97.7 03/07/25 06:52 Room Air* 0 21 General Appeara: Well developed, Well nourished, Normal Appearance Nasal Exam: Other (NG tube in place) Pulmonary/Respiratory: Normal inspection, Normal breath sounds, Chest non- tender, Lungs clear Cardiovascular/Chest: Normal inspection, Regular rate, Normal Rhythm Male Genital Exam: Other (left large hydrocele) Neuro/Mental St: Alert, Oriented Appearance: Appropriate appearance, Appropriate insight Eye contact/ Speech: Cooperative, Good eye contact, Normal speech Coordination/Gait: Normal finger->nose, Normal gait, Negative Romberg's sign Skin Exam: Normal inspection, Normal color, Warm/dry Labs/Xrays [facility] [id number] [place] [address] Ph: [phone] DIAGNOSTIC IMAGING Diagnostic Imaging Report : [id number] Signed PATIENT: RERE MERCEDES ACCT: [id number] UNIT: [id number] : 1960 LOC: ER ROOM / BED: / AGE / SEX: 64 / M ADM STATUS: REG ER SERVICE 0645 ORDERING PHYSICIAN: CHASITY MATTHEW MD PROCEDURE(s): ABPLIV - CT AB PEL WITH IV CON ONLY REASON: abdominal pain ORDER NUMBER(s): [id number], ACCESSION NUMBER(s): [id number] Exam: CT CT AB PEL WITH IV CON ONLY History: abdominal pain Comparison Study: None Contrast: Type of contrast: Omnipaque 300 Contrast injected: 100 mL Contrast wasted: 0 TECHNIQUE: CT of the abdomen pelvis was performed with intravenous contrast. Coronal and sagittal reformatted images are submitted. Radiation Dose Information: CT Dose: CTDI volume is 16.98 mGy. Dose-length product is 1199.64 mGy*cm FINDINGS: Lung Bases: No acute or significant lung base finding. Normal heart size. No pleural or pericardial effusion. Liver: The liver is normal in size. No focal lesions. Normal hepatic vascular enhancement. Gallbladder and Biliary Tree: The gallbladder is unremarkable. No biliary ductal dilatation. Spleen: Unremarkable. Pancreas: The pancreas is normal in appearance without focal lesions or abnormal enhancement. Adrenal Glands: Unremarkable Kidneys: Kidneys demonstrate normal symmetric enhancement without focal lesions, calculi or hydronephrosis. Bladder: Unremarkable Bowel: Fluid distention of the stomach. There are dilated fluid-filled small bowel loops with mesenteric fat stranding and mesenteric edema. There is a abrupt transition to collapsed distal small bowel loops in the right lower quadrant where there is fecalized small bowel loop. Findings are consistent with high-grade small bowel obstruction. Colon is underdistended. No findings to suggest acute appendicitis. Peritoneum: No pneumoperitoneum. No ascites. Lymphadenopathy: No mesenteric, retroperitoneal or periportal lymphadenopathy. Abdominal Wall and Mesentery: Unremarkable. Vasculature: The visualized abdominal aorta is normal in size and caliber. Abdominal and pelvic vessels demonstrate normal enhancement. Pelvic Organs: Very large left hydrocele. There is a cystic structure within the scrotal sac and calcification. Musculoskeletal: No aggressive focal bony lesions, acute fractures or dislocation. Soft tissues: Unremarkable. IMPRESSION: 1. High-grade small bowel obstruction with transition in the right lower quadrant adjacent to the fecalized small bowel loop. Mesenteric edema. 2. Very large left hydrocele containing a possible cystic mass. Testicular ultrasound recommended. All CT scans at this medical facility are performed using dose modulation techniques as appropriate to a performed exam including the following: Automated exposure control was utilized; adjustment of the MA and/or KV according to patient size; and use of iterative reconstruction technique. ATED BY: SHAN MERCEDES MD DICTATED DATE/TIME: 03/07/25839 SIGNED BY: SHAN MERCEDES MD SIGNED DATE/TIME: 03/07/25839 CC: [place] [id number] Ph: [phone] DIAGNOSTIC IMAGING Diagnostic Imaging Report : [id number] Signed PATIENT: RERE MERCEDES ACCT: [id number] UNIT: [id number] : 1960 LOC: ER ROOM / BED: / AGE / SEX: 64 / M ADM STATUS: REG ER SERVICE 9 ORDERING PHYSICIAN: CHASITY MATTHEW MD PROCEDURE(s): TESUS - TESTICULAR ULTRASOUND REASON: better evaluate ct findings ORDER NUMBER(s): [id number], ACCESSION NUMBER(s): [id number] ULTRASOUND OF SCROTUM AND CONTENTS. INDICATION: better evaluate ct findings COMPARISON: US TESTICULAR ULTRASOUND on DOS: 07/21/24 TECHNIQUE: Multiple real-time grayscale sonographic and color and duplex Doppler images of the scrotum and its contents were obtained. FINDINGS: The right testicle measures 2.8 x 3.0 x 4.1 cm. The left testicle measures 5.1 x 2.6 x 3.0 cm. Both testicles demonstrate homogeneous echotexture without evidence of focal lesions. The right epididymis measures 1.7 cm. The left epididymis measures 1.1 cm. Subsequent color and duplex Doppler interrogation of the testes demonstrated symmetric normal vascular flow to both testicles. No focal areas of hyperemia were seen. Severe left hydrocele. IMPRESSION: Severe left hydrocele. ATED BY: ANGEL SHIPMAN MD DICTATED DATE/TIME: 03/07/25 100 SIGNED BY: ANGEL SHIPMAN MD SIGNED DATE/TIME: 03/07/251008 CC: Labs Test 03/07/25 10:49 03/07/25 07:00 03/07/25 06:40 Range/Units Prothrombin Time 10.1 9.3-11.8 sec Prothrombin Time INR 0.95 0.9-1.15 Activated Partial Thromboplast Time 26.5 24.5-34.5 SEC White Blood Count 10.0 4.4-10.8 10^3/uL Red Blood Count 5.91 H 4.5-5.90 10^6/uL Hemoglobin 16.4 13.5-17.5 g/dL Hematocrit 49.1 41.0-53.0 % Mean Corpuscular Volume 83.1 80.0-100.0 fL Mean Corpuscular Hemoglobin 27.7 L 28.0-32.0 pg Mean Corpuscular Hemoglobin Concent 33.3 32.0-36.0 g/dL Red Cell Distribution Width 14.8 H 11.8-14.3 % Platelet Count 242 140-450 10^3/uL Mean Platelet Volume 7.6 6.9-10.8 fL Neutrophils (%) (Auto) 82.6 H 37.0-80.0 % Lymphocytes (%) (Auto) 12.4 10.0-50.0 % Monocytes (%) (Auto) 4.3 0.0-12.0 % Eosinophils (%) (Auto) 0.4 0.0-7.0 % Basophils (%) (Auto) 0.3 0.0-2.0 % Neutrophils # (Auto) 8.3 1.6-8.6 10 ^3/uL Lymphocytes # (Auto) 1.2 0.4-5.4 10 ^3/uL Monocytes # (Auto) 0.4 0-1.3 10 ^3/uL Eosinophils # (Auto) 0 0-0.8 10 ^3/uL Basophils # (Auto) 0 0-0.2 10 ^3/uL Nucleated Red Blood Cells 0.1 % Sodium Level 142 136-145 mmol/L Potassium Level 3.4 L 3.5-5.1 mmol/L Chloride Level 104 98-107 mmol/L Carbon Dioxide Level 27 20-31 mmol/L Anion Gap 11 5-15 Blood Urea Nitrogen 10 9-23 mg/dL Creatinine 1.11 0.700-1.30 mg/dL Glomerular Filtration Rate Calc 74 >90 mL/min BUN/Creatinine Ratio 9.0 L 10.0-20.0 Serum Glucose 125 H 74-106 mg/dL Calcium Level 10.2 8.7-10.4 mg/dL Total Bilirubin 0.6 0.2-1.0 mg/dL Aspartate Amino Transferase (AST) 25 13-40 U/L Alanine Aminotransferase (ALT) 21 7-40 U/L Alkaline Phosphatase 132 H 46-116 U/L Troponin I High Sensitivity 3 L </=54 ng/L Total Protein 8.3 H 5.7-8.2 g/dL Albumin 5.0 H 3.2-4.8 g/dL Lipase 34 12-53 U/L Urine Color Light-yellow Yellow Urine Clarity Clear Clear Urine pH 7.5 5.0-9.0 Urine Specific [place] 1.049 H 1.001-1.035 Urine Protein Negative Negative Urine Ketones Negative Negative Urine Blood Negative Negative /uL Urine Nitrite Negative Negative Urine Bilirubin Negative Negative Urine Urobilinogen Normal Negative mg/dL Urine Leukocyte Esterase Negative Negative /uL Urine RBC 2 0 - 3 /hpf Urine Microscopic WBC 3 0-3 /HPF Urine Squamous Epithelial Cells Few <5 /hpf Urine Bacteria None seen None Seen /hpf Urine Mucus Few None Seen Urine Yeast (Budding) Few None Seen /hpf Urine Glucose Normal Normal mg/dL Assessment/Plan Problem List: (1) Hydrocele in adult (2) Testicular mass (3) Small bowel obstruction Plan outpt left hydrocelectomy urology signing off Plan discussed with: Patient, Other KENDALL FRANK NP Mar 07, 2025 13:36
--- NOTE | 2025-03-07 14:43 | DVHINCON2 ---
Date of service: Mar 07, 2025 Allergies: Coded Allergies: NO KNOWN ALLERGIES (Unverified , 07/21/24) Current Medications Current Medications Medications (Trade) Dose Ordered Sig/Giovani Route PRN Reason Start Time Stop Time Status Last Admin Sodium Chloride 1,000 ml @ 75 mls/hr [id number] IV 03/07/25 11:00 03/07/25 11:00 Ondansetron HCl (Zofran) 4 mg Q4HP PRN IV NAUSEA / VOMITING 03/07/25 11:00 Docusate Sodium (Colace Capsule) 100 mg BIDPRN PRN PO FOR CONSTIPATION 03/07/25 11:00 Morphine Sulfate 2 mg Q4HPRN PRN IV SEVERE PAIN (7-10 PAIN SCALE) 03/07/25 11:00 Acetaminophen (Tylenol Suppository) 650 mg Q6HP PRN AR PAIN SCALE 1-3 OR TEMP>100.4 03/07/25 11:00 Metronidazole 100 ml @ 100 mls/hr Q8HR IV 03/07/25 14:00 03/07/25 14:09 Hydralazine HCl (Apresoline Injection) 10 mg Q6HP PRN IV SBP>150 03/07/25 11:00 Vital Signs Vital Signs Date Time Temp Pulse Resp B/P (MAP) Pulse Ox O2 Delivery O2 Flow Rate FiO2 03/07/25 13:30 92 15 125/84 (98) 97 03/07/25 09:30 97.7 97.7 03/07/25 06:52 Room Air* 0 21 Labs/Diagnostic Data Labs Test 03/07/25 10:49 03/07/25 07:00 03/07/25 06:40 Range/Units Prothrombin Time 10.1 9.3-11.8 sec Prothrombin Time INR 0.95 0.9-1.15 Activated Partial Thromboplast Time 26.5 24.5-34.5 SEC White Blood Count 10.0 4.4-10.8 10^3/uL Red Blood Count 5.91 H 4.5-5.90 10^6/uL Hemoglobin 16.4 13.5-17.5 g/dL Hematocrit 49.1 41.0-53.0 % Mean Corpuscular Volume 83.1 80.0-100.0 fL Mean Corpuscular Hemoglobin 27.7 L 28.0-32.0 pg Mean Corpuscular Hemoglobin Concent 33.3 32.0-36.0 g/dL Red Cell Distribution Width 14.8 H 11.8-14.3 % Platelet Count 242 140-450 10^3/uL Mean Platelet Volume 7.6 6.9-10.8 fL Neutrophils (%) (Auto) 82.6 H 37.0-80.0 % Lymphocytes (%) (Auto) 12.4 10.0-50.0 % Monocytes (%) (Auto) 4.3 0.0-12.0 % Eosinophils (%) (Auto) 0.4 0.0-7.0 % Basophils (%) (Auto) 0.3 0.0-2.0 % Neutrophils # (Auto) 8.3 1.6-8.6 10 ^3/uL Lymphocytes # (Auto) 1.2 0.4-5.4 10 ^3/uL Monocytes # (Auto) 0.4 0-1.3 10 ^3/uL Eosinophils # (Auto) 0 0-0.8 10 ^3/uL Basophils # (Auto) 0 0-0.2 10 ^3/uL Nucleated Red Blood Cells 0.1 % Sodium Level 142 136-145 mmol/L Potassium Level 3.4 L 3.5-5.1 mmol/L Chloride Level 104 98-107 mmol/L Carbon Dioxide Level 27 20-31 mmol/L Anion Gap 11 5-15 Blood Urea Nitrogen 10 9-23 mg/dL Creatinine 1.11 0.700-1.30 mg/dL Glomerular Filtration Rate Calc 74 >90 mL/min BUN/Creatinine Ratio 9.0 L 10.0-20.0 Serum Glucose 125 H 74-106 mg/dL Calcium Level 10.2 8.7-10.4 mg/dL Total Bilirubin 0.6 0.2-1.0 mg/dL Aspartate Amino Transferase (AST) 25 13-40 U/L Alanine Aminotransferase (ALT) 21 7-40 U/L Alkaline Phosphatase 132 H 46-116 U/L Troponin I High Sensitivity 3 L </=54 ng/L Total Protein 8.3 H 5.7-8.2 g/dL Albumin 5.0 H 3.2-4.8 g/dL Lipase 34 12-53 U/L Urine Color Light-yellow Yellow Urine Clarity Clear Clear Urine pH 7.5 5.0-9.0 Urine Specific [place] 1.049 H 1.001-1.035 Urine Protein Negative Negative Urine Ketones Negative Negative Urine Blood Negative Negative /uL Urine Nitrite Negative Negative Urine Bilirubin Negative Negative Urine Urobilinogen Normal Negative mg/dL Urine Leukocyte Esterase Negative Negative /uL Urine RBC 2 0 - 3 /hpf Urine Microscopic WBC 3 0-3 /HPF Urine Squamous Epithelial Cells Few <5 /hpf Urine Bacteria None seen None Seen /hpf Urine Mucus Few None Seen Urine Yeast (Budding) Few None Seen /hpf Urine Glucose Normal Normal mg/dL Assessment [id number] AFEBRILE VSS NO ABD PAIN ABD SOFT NON DISTENDED NON ACUTE MILD TENDERNESS RLQ WBC WNL CT SCAN R/O SBO POSSIBLE RESOLVING SBO ILEUS CLOSE OBSERVATION KEEP NPO NG CONSIDER EMERGENT /ELECTIVE SURGERY BASED ON ONGOING EVAL Plan discussed with: Patient SHELLY HANEY MD Mar 07, 2025 14:43
--- NOTE | 2025-03-07 15:02 | DVHINCON2 ---
DATE OF CONSULTATION: 03/07/2025 HISTORY OF PRESENT ILLNESS: This patient is 64 years old coming in with abdominal pain, now feeling better. He had some nausea and vomiting yesterday but not today and I was asked to see him in regards to bowel obstruction and just before seeing him, he went to the restroom and had bowel activity and bowel movements and is passing flatus as well. No hematemesis or melena. No bleeding per rectum. PAST MEDICAL HISTORY: Hypertension. PAST SURGICAL HISTORY: No significant surgical history in the past. PHYSICAL EXAMINATION: VITAL SIGNS: Afebrile. Stable signs with no evidence of pallor, cyanosis, or jaundice. NECK: Supple and nontender with no thyromegaly or lymphadenopathy. CHEST AND LUNGS: Clear. HEART: Within normal limits. ABDOMEN: Soft. Minimally tender in the right lower abdomen but there is no rebound, not an acute abdomen, and he has an NG tube in place. NEUROLOGIC: Not assessed. EXTREMITIES: Unremarkable. IMAGING DATA: CAT scan is suggesting small bowel obstruction. Etiology is not clear. There also is a left-sided hydrocele that has been drained by Urology and the CAT scan of the abdomen and pelvis is suggesting dilated small bowel loops with a transition point in the right lower abdomen. No free air. CLINICAL IMPRESSION: Possibly resolving small bowel obstruction. At this point, needs conservative management. Kept n.p.o. with NG to low continuous suction. Close observation and consider emergent or elective surgery based upon ongoing evaluation. MD VIELKA Taylor/NAOMI TID: [id number] RECEIPT: [id number] cc: RITA Andrade
[2025-03-07] MEDS: ONDANSETRON HCL 4 MG/2 ML VIAL IV PRN (15:09)
[2025-03-07] MEDS: MORPHINE SULFATE INJ 2 MG/ml SYRG IV PRN (15:10)
[2025-03-07 19:24] VITALS: PULSE 93; RESP 19; O2SAT 96
--- NOTE | 2025-03-07 21:57 | DVHINCON2 ---
Date of service: Mar 07, 2025 Referring Physician Spencer Ahumada Reason for Consultation Abdominal pain possible bowel obstruction versus ileus History of Present Illness Navin Stiles is a 64-year-old male with past medical history of hypertension, and hyperlipidemia, who came to the hospital for abdominal pain. Patient states his abdominal pain began yesterday about noon. The pain was mostly epigastric at that time. Around 3-4 he was feeling better, then the pain returned after he ate dinner. When the pain returned it was more intense and radiated across his entire abdomen. This morning he was going to head to [place] for a dental appointment, but came to the ER instead due to the pain. Denies any nausea or vomiting. Patient also has severe left hydrocele. Patient was evaluated by surgical and urology consult. Patient stated his last colonoscopy was in 2016 which was negative. Patient stated he might have eaten a contaminated katerine because his abdominal pain started 30 minutes after eating the katerine. No recent travel Past Medical History Cardiovascular: HTN, hyperipidemia, hydrocele Social History Smoke: No Allergies: Coded Allergies: NO KNOWN ALLERGIES (Unverified , 07/21/24) Current Medications Current Medications Medications (Trade) Dose Ordered Sig/Giovani Route PRN Reason Start Time Stop Time Status Last Admin Sodium Chloride 1,000 ml @ 75 mls/hr [id number] IV 03/07/25 11:00 03/07/25 11:00 Ondansetron HCl (Zofran) 4 mg Q4HP PRN IV NAUSEA / VOMITING 03/07/25 11:00 03/07/25 19:11 Docusate Sodium (Colace Capsule) 100 mg BIDPRN PRN PO FOR CONSTIPATION 03/07/25 11:00 Morphine Sulfate 2 mg Q4HPRN PRN IV SEVERE PAIN (7-10 PAIN SCALE) 03/07/25 11:00 03/07/25 19:13 Acetaminophen (Tylenol Suppository) 650 mg Q6HP PRN ID PAIN SCALE 1-3 OR TEMP>100.4 03/07/25 11:00 Metronidazole 100 ml @ 100 mls/hr Q8HR IV 03/07/25 14:00 03/07/25 14:09 Hydralazine HCl (Apresoline Injection) 10 mg Q6HP PRN IV SBP>150 03/07/25 11:00 Vital Signs Vital Signs Date Time Temp Pulse Resp B/P (MAP) Pulse Ox O2 Delivery O2 Flow Rate FiO2 03/07/25 19:43 90 19 129/84 03/07/25 19:24 96 Nasal Cannula* 2 28 03/07/25 19:24 97.5 97.5 Physical Exam VITAL SIGNS: Afebrile. Stable signs with no evidence of pallor, cyanosis, or jaundice. NECK: Supple and nontender with no thyromegaly or lymphadenopathy. CHEST AND LUNGS: Clear. HEART: Within normal limits. ABDOMEN: Soft. Minimally tender in the right lower abdomen but there is no rebound, not an acute abdomen, and he has an NG tube in place. NEUROLOGIC: Awake and alert x3, no focal deficit EXTREMITIES: Unremarkable. Labs/Diagnostic Data Labs Test 03/07/25 15:22 03/07/25 10:49 03/07/25 07:00 03/07/25 06:40 Range/Units Lactic Acid Level 1.4 0.4-2.0 mmol/L Prothrombin Time 10.1 9.3-11.8 sec Prothrombin Time INR 0.95 0.9-1.15 Activated Partial Thromboplast Time 26.5 24.5-34.5 SEC White Blood Count 10.0 4.4-10.8 10^3/uL Red Blood Count 5.91 H 4.5-5.90 10^6/uL Hemoglobin 16.4 13.5-17.5 g/dL Hematocrit 49.1 41.0-53.0 % Mean Corpuscular Volume 83.1 80.0-100.0 fL Mean Corpuscular Hemoglobin 27.7 L 28.0-32.0 pg Mean Corpuscular Hemoglobin Concent 33.3 32.0-36.0 g/dL Red Cell Distribution Width 14.8 H 11.8-14.3 % Platelet Count 242 140-450 10^3/uL Mean Platelet Volume 7.6 6.9-10.8 fL Neutrophils (%) (Auto) 82.6 H 37.0-80.0 % Lymphocytes (%) (Auto) 12.4 10.0-50.0 % Monocytes (%) (Auto) 4.3 0.0-12.0 % Eosinophils (%) (Auto) 0.4 0.0-7.0 % Basophils (%) (Auto) 0.3 0.0-2.0 % Neutrophils # (Auto) 8.3 1.6-8.6 10 ^3/uL Lymphocytes # (Auto) 1.2 0.4-5.4 10 ^3/uL Monocytes # (Auto) 0.4 0-1.3 10 ^3/uL Eosinophils # (Auto) 0 0-0.8 10 ^3/uL Basophils # (Auto) 0 0-0.2 10 ^3/uL Nucleated Red Blood Cells 0.1 % Sodium Level 142 136-145 mmol/L Potassium Level 3.4 L 3.5-5.1 mmol/L Chloride Level 104 98-107 mmol/L Carbon Dioxide Level 27 20-31 mmol/L Anion Gap 11 5-15 Blood Urea Nitrogen 10 9-23 mg/dL Creatinine 1.11 0.700-1.30 mg/dL Glomerular Filtration Rate Calc 74 >90 mL/min BUN/Creatinine Ratio 9.0 L 10.0-20.0 Serum Glucose 125 H 74-106 mg/dL Calcium Level 10.2 8.7-10.4 mg/dL Total Bilirubin 0.6 0.2-1.0 mg/dL Aspartate Amino Transferase (AST) 25 13-40 U/L Alanine Aminotransferase (ALT) 21 7-40 U/L Alkaline Phosphatase 132 H 46-116 U/L Troponin I High Sensitivity 3 L </=54 ng/L Total Protein 8.3 H 5.7-8.2 g/dL Albumin 5.0 H 3.2-4.8 g/dL Lipase 34 12-53 U/L Urine Color Light-yellow Yellow Urine Clarity Clear Clear Urine pH 7.5 5.0-9.0 Urine Specific [place] 1.049 H 1.001-1.035 Urine Protein Negative Negative Urine Ketones Negative Negative Urine Blood Negative Negative /uL Urine Nitrite Negative Negative Urine Bilirubin Negative Negative Urine Urobilinogen Normal Negative mg/dL Urine Leukocyte Esterase Negative Negative /uL Urine RBC 2 0 - 3 /hpf Urine Microscopic WBC 3 0-3 /HPF Urine Squamous Epithelial Cells Few <5 /hpf Urine Bacteria None seen None Seen /hpf Urine Mucus Few None Seen Urine Yeast (Budding) Few None Seen /hpf Urine Glucose Normal Normal mg/dL Testicular USG IMPRESSION: Severe left hydrocele. CT SCAN ABD PELVIS IMPRESSION: 1. High-grade small bowel obstruction with transition in the right lower quadrant adjacent to the fecalized small bowel loop. Mesenteric edema. 2. Very large left hydrocele containing a possible cystic mass. Testicular ultrasound recommended. Problems(with codes): (1) Hydrocele in adult (2) Small bowel obstruction Plan/Recommendation Plan Patient felt relief after drainage of fluid from his hydrocele by urology consult Patient is also moving his bowels and small-bowel obstruction appears to be resolving Continue IV fluid hydration, NG tube to low intermittent suction, ice chips Patient is on broad-spectrum antibiotics Repeat KUB in a.m. Outpatient elective colonoscopy once medically stabilized If abdominal symptoms persist consider small-bowel series Gastrografin Plan discussed with: Patient, Other (ER Nurse) NINO HANEY MD Mar 07, 2025 21:57
[2025-03-07 22:00] VITALS: BP 128/79; PULSE 71; RESP 18; TEMP 97.5; O2SAT 100
[2025-03-08] VITALS (8 sets, daily range): BP systolic 126–141; BP diastolic 77–85; PULSE 81–97; RESP 16–20; TEMP 97.6–98.7; O2SAT 93–100
[2025-03-08] MEDS ORDERED: GABA-1308 PO (00:28)
[2025-03-08] MEDS ORDERED: ATOR10TA52 PO (00:28)
[2025-03-08] MEDS ORDERED: AMLO1TAB22 PO (00:28)
[2025-03-08] MEDS ORDERED: LISI2.5T47 PO (00:28)
[2025-03-08 06:15] LABS: Hematocrit 47.5 % (41.0-53.0); Hemoglobin 16.1 g/dL (13.5-17.5); Mean Corpuscular Hemoglobin 28.5 pg (28.0-32.0); Mean Corpuscular Volume 84.1 fL (80.0-100.0); Nucleated Red Blood Cells % 0.0 %
[2025-03-08 06:22] LABS: Alanine Aminotransferase 21 U/L (7-40); Anion Gap 12 (5-15); BUN/Creatinine Ratio 11.7 (10.0-20.0); Blood Urea Nitrogen 12 mg/dL (9-23); Calcium 10.0 mg/dL (8.7-10.4); Carbon Dioxide 27 mmol/L (20-31); Chloride 103 mmol/L (98-107); Potassium 3.9 mmol/L (3.5-5.1); Sodium 142 mmol/L (136-145); Total Protein 7.8 g/dL (5.7-8.2)
[2025-03-08 06:23] LABS: Albumin 5.0 g/dL (3.2-4.8); Alkaline Phosphatase 133 U/L (46-116); Bilirubin, Total 0.9 mg/dL (0.2-1.0); Glucose 132 mg/dL (74-106)
--- NOTE | 2025-03-08 09:06 | DVHPN2 ---
Progress Note Date Seen: Mar 08, 2025 Medical Necessity Reason Pt with a Central, PICC or Fol: No Objective vital signs Vital Sign Date Time Temp Pulse Resp B/P (MAP) Pulse Ox O2 Delivery O2 Flow Rate FiO2 03/08/25 05:00 97.6 81 20 141/82 (101) 98 97.6 03/07/25 23:33 Nasal Cannula* 2 28 Total Intake and Output 03/07/25 03/07/25 03/08/25 15:00 23:00 07:00 Intake Total 300 ml 400 ml 650 ml Output Total 800 ml Balance -500 ml 400 ml 650 ml medications Current Medications Medications Dose Ordered Sig/Giovani Route Start Time Stop Time Status Last Admin Dose Admin Sodium Chloride 1,000 ml @ 75 mls/hr [id number] IV 03/07/25 11:00 03/08/25 02:20 75 MLS/HR Ondansetron HCl 4 mg Q4HP PRN IV 03/07/25 11:00 03/07/25 23:15 4 MG Docusate Sodium 100 mg BIDPRN PRN PO 03/07/25 11:00 Morphine Sulfate 2 mg Q4HPRN PRN IV 03/07/25 11:00 03/07/25 23:14 2 MG Acetaminophen 650 mg Q6HP PRN [place] 03/07/25 11:00 Metronidazole 100 ml @ 100 mls/hr Q8HR IV 03/07/25 14:00 03/08/25 05:41 100 MLS/HR Hydralazine HCl 10 mg Q6HP PRN IV 03/07/25 11:00 Pantoprazole Sodium 40 mg DAILY IV 03/08/25 10:00 laboratory and microbiology Laboratory Tests 03/08/25 05:14 Test 03/08/25 05:14 Range/Units Serum Glucose 132 H 74-106 mg/dL Problem List/Assessment/Plan Problem List/Assessment/Plan AFEBRILE VSS ABD SOFT NON TENDER NO BM FLATUS + NG IN PLACE 250 CC CONTINUE CLOSE OBSERVATION GASTROGRAFIN STUDY SMALL BOWEL FOLLOW THROUGH TO DETERMINE THE NEED FOR SURGERY NURSE AT BEDSIDE Plan discussed with: Patient SHELLY HANEY MD Mar 08, 2025 09:06
[2025-03-08] MEDS: PANTOPRAZOLE 40 MG/10 ML VIAL INJ IV SCH (10:08)
[2025-03-08] MEDS ORDERED: GASTROGRAFIN 120 ML SOL ONE (13:39)
--- NOTE | 2025-03-08 13:45 | DVHPN2 ---
Reviewed: Care Plan, H&P, Labs, Medications, Previous Orders, Radiology Changes from previous H/P or p: No Changes Eyes: No Pain, No Vision change, No Conjunctivae inflammation, No Eyelid inflammation, No Other, No Redness ENT: No Ear pain, No Ear discharge, No Nose pain, No Nose discharge, No Nose congestion, No Mouth pain, No Mouth swelling, No Throat pain, No Throat swelling, No Other Cardiovascular: No Chest Pain, No Palpitations, No Orthopnea, No Paroxysmal Noc. Dyspnea, No Edema, No Lt Headedness, No Other Respiratory: No Cough, No Dry, No Shortness of breath, No SOB with excertion, No Wheezing, No Hemoptysis, No Pleuritic Pain, No Sputum, No Other Gastrointestinal: No Nausea, No Vomiting; Abdominal Pain; No Diarrhea, No Constipation, No Melena, No Hematochezia, No Other Genitourinary: No Dysuria, No Frequency, No Incontinence, No Hematuria, No Retention, No Other Musculoskeletal: No other, No neck pain, No shoulder pain, No arm pain, No back pain, No hand pain, No leg pain, No foot pain Skin: No Rash, No Lesions, No Jaundice, No Bruising, No Other Objective Vitals Vital Signs Date Time Temp Pulse Resp B/P (MAP) Pulse Ox O2 Delivery O2 Flow Rate FiO2 03/08/25 12:30 98.2 87 18 126/81 (96) 96 98.2 03/07/25 23:33 Nasal Cannula* 2 28 Intake/Output Intake and Output 03/08/25 07:00 Intake Total 1350 ml Output Total 800 ml Balance 550 ml Intake Oral 0 ml IV Total 1350 ml Output Gastric Drainage Total 800 ml # Voids 1 Medications Current Medications Medications Dose Ordered Sig/Giovani Route Start Time Stop Time Status Last Admin Dose Admin Sodium Chloride 1,000 ml @ 75 mls/hr [id number] IV 03/07/25 11:00 03/08/25 02:20 75 MLS/HR Ondansetron HCl 4 mg Q4HP PRN IV 03/07/25 11:00 03/07/25 23:15 4 MG Docusate Sodium 100 mg BIDPRN PRN PO 03/07/25 11:00 Morphine Sulfate 2 mg Q4HPRN PRN IV 03/07/25 11:00 03/07/25 23:14 2 MG Acetaminophen 650 mg Q6HP PRN [place] 03/07/25 11:00 Metronidazole 100 ml @ 100 mls/hr Q8HR IV 03/07/25 14:00 03/08/25 05:41 100 MLS/HR Hydralazine HCl 10 mg Q6HP PRN IV 03/07/25 11:00 Pantoprazole Sodium 40 mg DAILY IV 03/08/25 10:00 03/08/25 10:08 40 MG Laboratory Results Laboratory Tests 03/08/25 05:14 Chemistry Test 03/08/25 05:14 Albumin 5.0 g/dL (3.2-4.8) H Calcium Level 10.0 mg/dL (8.7-10.4) Total Protein 7.8 g/dL (5.7-8.2) LFT Test 03/08/25 05:14 Alanine Aminotransferase (ALT) 21 U/L (7-40) Alkaline Phosphatase 133 U/L (46-116) H Aspartate Amino Transferase (AST) 25 U/L (13-40) Total Bilirubin 0.9 mg/dL (0.2-1.0) Urinalysis Test 03/07/25 06:40 Urine Color Light-yellow (Yellow) Urine Clarity Clear (Clear) Urine pH 7.5 (5.0-9.0) Urine Specific [place] 1.049 (1.001-1.035) Urine Protein Negative (Negative) Urine Ketones Negative (Negative) Urine Blood Negative /uL (Negative) Urine Nitrite Negative (Negative) Urine Bilirubin Negative (Negative) Urine Urobilinogen Normal mg/dL (Negative) Urine Leukocyte Esterase Negative /uL (Negative) Urine RBC 2 /hpf (0 - 3) Urine Microscopic WBC 3 /HPF (0-3) Urine Squamous Epithelial Cells Few /hpf (<5) Urine Bacteria None seen /hpf (None Seen) Urine Mucus Few (None Seen) Urine Yeast (Budding) Few /hpf (None Seen) Urine Glucose Normal mg/dL (Normal) Labs and/or images reviewed: Labs reviewed by me, Image(s) reviewed by me Assessment/Plan Assessment/Plan Acute small bowel obstruction resolving: GI consult by Dr. Joselo Vallejo and surgical consult by Dr. Cooper Vallejo appreciated waiting for small-bowel follow through Large left hydrocele: Urology consult appreciated advised outpatient hydrocelectomy Hypertension Hypercholesterolemia Plan discussed with: Patient Date of Service: Mar 08, 2025 Billing Provider: BANDAR BOWERS MD Common Visit Codes: [id number] INP/OBS CARE(HIGH) BANDAR BOWERS MD Mar 08, 2025 13:45
--- NOTE | 2025-03-08 15:53 | DVH ---
CHEST RADIOGRAPH Indication: NGT PLCMNT Technique: Single frontal view of the chest was obtained Comparison: XY CHEST XRAY 1 VIEW on DOS: 03/07/25, XY CHEST PORTABLE on DOS: 03/07/25 FINDINGS: Lines and Tubes: Enteric tube is noted in the stomach however there is still gaseous distention of th e stomach. Recommend advancement 2-3 inches. Lungs: No focal consolidation. Pleura: No effusion. No pneumothorax. Cardiomediastinal contours: Unremarkable Bones: No acute osseous abnormality. IMPRESSION: 1. Recommend advancement of the enteric tube 2-3 inches.
--- NOTE | 2025-03-08 20:25 | DVH ---
Procedure: XY SMALL BOWEL SERIES-W GASTROGRA Reason for study/Clinical History: R/O SMALL BOWEL OBSTRUCTION Comparison Study: None Technique: Single contrast small bowel series performed. FINDINGS/IMPRESSION: Nonspecific bowel-gas pattern. Faint visualization of enteric contrast in the ascending colon at 3 hours. This suggests delayed smal l-bowel transit time without definite obstruction. Recommend repeat KUB in 12 hours.
--- NOTE | 2025-03-08 22:52 | DVHPN2 ---
Progress Note - Dictate Date Seen: Mar 08, 2025 Medical Necessity Reason Pt with a Central, PICC or Fol: No Subjective No new complaints Patient is resting comfortably NG tube to low intermittent suction; output 800 mL over 24 hours vital signs Vital Sign Date Time Temp Pulse Resp B/P (MAP) Pulse Ox O2 Delivery O2 Flow Rate FiO2 03/08/25 17:03 98.2 85 18 135/83 (100) 97 98.2 03/08/25 08:00 Room Air* 0 21 Total Intake and Output 03/07/25 03/07/25 03/08/25 15:00 23:00 07:00 Intake Total 300 ml 400 ml 650 ml Output Total 800 ml Balance -500 ml 400 ml 650 ml medications Current Medications Medications Dose Ordered Sig/Giovani Route Start Time Stop Time Status Last Admin Dose Admin Sodium Chloride 1,000 ml @ 75 mls/hr [id number] IV 03/07/25 11:00 03/08/25 02:20 75 MLS/HR Ondansetron HCl 4 mg Q4HP PRN IV 03/07/25 11:00 03/08/25 20:27 4 MG Docusate Sodium 100 mg BIDPRN PRN PO 03/07/25 11:00 Morphine Sulfate 2 mg Q4HPRN PRN IV 03/07/25 11:00 03/07/25 23:14 2 MG Acetaminophen 650 mg Q6HP PRN [place] 03/07/25 11:00 Metronidazole 100 ml @ 100 mls/hr Q8HR IV 03/07/25 14:00 03/08/25 05:41 100 MLS/HR Hydralazine HCl 10 mg Q6HP PRN IV 03/07/25 11:00 Pantoprazole Sodium 40 mg DAILY IV 03/08/25 10:00 03/08/25 10:08 40 MG objective VITAL SIGNS: Afebrile. Stable signs with no evidence of pallor, cyanosis, or jaundice. NECK: Supple and nontender with no thyromegaly or lymphadenopathy. CHEST AND LUNGS: Clear. HEART: Within normal limits. ABDOMEN: Soft. NT/ND not an acute abdomen, and he has an NG tube in place. NEUROLOGIC: Awake and alert x3, no focal deficit EXTREMITIES: Unremarkable. laboratory and microbiology Laboratory Tests 03/08/25 05:14 Test 03/08/25 05:14 Range/Units Serum Glucose 132 H 74-106 mg/dL SBFT X RAY FINDINGS/IMPRESSION: Nonspecific bowel-gas pattern. Faint visualization of enteric contrast in the ascending colon at 3 hours. This suggests delayed small-bowel transit time without definite obstruction. Recommend repeat KUB in 12 hours. Problems(with codes): (1) Ileus (2) Hydrocele in adult Prognosis Plan Continue to monitor bowel activity Repeat KUB in a.m. IV fluid hydration IV Flagyl IV PPI Ice chips in am ? Plan discussed with: Patient NINO HANEY MD Mar 08, 2025 22:52
[2025-03-09] VITALS (7 sets, daily range): BP systolic 128–141; BP diastolic 80–92; PULSE 67–93; RESP 16–18; TEMP 97.1–98.4; O2SAT 91–100
--- NOTE | 2025-03-09 08:54 | DVH ---
Exam: XY KUB ABDOMEN SINGLE VIEW Indication: SBO Comparison: None Technique: 1 radiographic views of the abdomen. Findings: Nonspecific bowel-gas pattern. Enteric contrast is present in the colon. There is no definite evidence for pneumoperitoneum. No abnormal calcifications noted. Impression: Nonspecific nonobstructive bowel-gas pattern. Enteric contrast is present in the colon.
--- NOTE | 2025-03-09 10:33 | DVHPN2 ---
Reviewed: Care Plan, H&P, Labs, Medications, Previous Orders, Radiology Changes from previous H/P or p: No Changes Eyes: No Pain, No Vision change, No Conjunctivae inflammation, No Eyelid inflammation, No Other, No Redness ENT: No Ear pain, No Ear discharge, No Nose pain, No Nose discharge, No Nose congestion, No Mouth pain, No Mouth swelling, No Throat pain, No Throat swelling, No Other Cardiovascular: No Chest Pain, No Palpitations, No Orthopnea, No Paroxysmal Noc. Dyspnea, No Edema, No Lt Headedness, No Other Respiratory: No Cough, No Dry, No Shortness of breath, No SOB with excertion, No Wheezing, No Hemoptysis, No Pleuritic Pain, No Sputum, No Other Gastrointestinal: No Nausea, No Vomiting; Abdominal Pain; No Diarrhea, No Constipation, No Melena, No Hematochezia, No Other Genitourinary: No Dysuria, No Frequency, No Incontinence, No Hematuria, No Retention, No Other Musculoskeletal: No other, No neck pain, No shoulder pain, No arm pain, No back pain, No hand pain, No leg pain, No foot pain Skin: No Rash, No Lesions, No Jaundice, No Bruising, No Other Objective Vitals Vital Signs Date Time Temp Pulse Resp B/P (MAP) Pulse Ox O2 Delivery O2 Flow Rate FiO2 03/09/25 09:10 98.2 90 18 132/82 (99) 91 98.2 03/08/25 20:00 Room Air* 0 21 Intake/Output Intake and Output 03/09/25 07:00 Intake Total 550 ml Balance 550 ml Intake Oral 0 ml IV Total 550 ml # Voids 2 # Bowel Movements 1 Medications Current Medications Medications Dose Ordered Sig/Giovani Route Start Time Stop Time Status Last Admin Dose Admin Sodium Chloride 1,000 ml @ 75 mls/hr [id number] IV 03/07/25 11:00 03/08/25 22:54 75 MLS/HR Ondansetron HCl 4 mg Q4HP PRN IV 03/07/25 11:00 03/08/25 20:27 4 MG Docusate Sodium 100 mg BIDPRN PRN PO 03/07/25 11:00 Morphine Sulfate 2 mg Q4HPRN PRN IV 03/07/25 11:00 03/07/25 23:14 2 MG Acetaminophen 650 mg Q6HP PRN [place] 03/07/25 11:00 Metronidazole 100 ml @ 100 mls/hr Q8HR IV 03/07/25 14:00 03/09/25 05:57 100 MLS/HR Hydralazine HCl 10 mg Q6HP PRN IV 03/07/25 11:00 Pantoprazole Sodium 40 mg DAILY IV 03/08/25 10:00 03/09/25 08:53 40 MG Laboratory Results Laboratory Tests 03/08/25 05:14 Urinalysis Test 03/07/25 06:40 Urine Color Light-yellow (Yellow) Urine Clarity Clear (Clear) Urine pH 7.5 (5.0-9.0) Urine Specific [place] 1.049 (1.001-1.035) Urine Protein Negative (Negative) Urine Ketones Negative (Negative) Urine Blood Negative /uL (Negative) Urine Nitrite Negative (Negative) Urine Bilirubin Negative (Negative) Urine Urobilinogen Normal mg/dL (Negative) Urine Leukocyte Esterase Negative /uL (Negative) Urine RBC 2 /hpf (0 - 3) Urine Microscopic WBC 3 /HPF (0-3) Urine Squamous Epithelial Cells Few /hpf (<5) Urine Bacteria None seen /hpf (None Seen) Urine Mucus Few (None Seen) Urine Yeast (Budding) Few /hpf (None Seen) Urine Glucose Normal mg/dL (Normal) Labs and/or images reviewed: Labs reviewed by me, Image(s) reviewed by me Assessment/Plan Assessment/Plan Acute small bowel obstruction resolving: GI consult by Dr. Joselo Vallejo and surgical consult by Dr. Cooper Vallejo appreciated small-bowel follow-through shows SBO resolving Large left hydrocele: Urology consult appreciated advised outpatient hydrocelectomy Hypertension Hypercholesterolemia Possible DC tomorrow Plan discussed with: Patient My Orders Orders - BANDAR BOWERS MD Procedure Category Date Status Time Chest Xray 1 View XY 03/08/25 Resulted 15:21 Date of Service: Mar 09, 2025 Billing Provider: BANDAR BOWERS MD Common Visit Codes: [id number] INP/OBS CARE(HIGH) BANDAR BOWERS MD Mar 09, 2025 10:33
--- NOTE | 2025-03-09 11:24 | DVHPN2 ---
Progress Note Date Seen: Mar 09, 2025 Medical Necessity Reason Pt with a Central, PICC or Fol: No Objective vital signs Vital Sign Date Time Temp Pulse Resp B/P (MAP) Pulse Ox O2 Delivery O2 Flow Rate FiO2 03/09/25 09:10 98.2 90 18 132/82 (99) 91 98.2 03/08/25 20:00 Room Air* 0 21 Total Intake and Output 03/08/25 03/08/25 03/09/25 15:00 23:00 07:00 Intake Total 450 ml 100 ml Balance 450 ml 100 ml medications Current Medications Medications Dose Ordered Sig/Giovani Route Start Time Stop Time Status Last Admin Dose Admin Sodium Chloride 1,000 ml @ 75 mls/hr [id number] IV 03/07/25 11:00 03/08/25 22:54 75 MLS/HR Ondansetron HCl 4 mg Q4HP PRN IV 03/07/25 11:00 03/08/25 20:27 4 MG Docusate Sodium 100 mg BIDPRN PRN PO 03/07/25 11:00 Morphine Sulfate 2 mg Q4HPRN PRN IV 03/07/25 11:00 03/07/25 23:14 2 MG Acetaminophen 650 mg Q6HP PRN [place] 03/07/25 11:00 Metronidazole 100 ml @ 100 mls/hr Q8HR IV 03/07/25 14:00 03/09/25 05:57 100 MLS/HR Hydralazine HCl 10 mg Q6HP PRN IV 03/07/25 11:00 Pantoprazole Sodium 40 mg DAILY IV 03/08/25 10:00 03/09/25 08:53 40 MG laboratory and microbiology Laboratory Tests 03/08/25 05:14 Test 03/08/25 05:14 Range/Units Serum Glucose 132 H 74-106 mg/dL Problem List/Assessment/Plan Problem List/Assessment/Plan AFEBRILE VSS ABD SOFT NON TENDER BM + FLATUS + NG IN PLACE 250 CC CONTINUE CLOSE OBSERVATION GASTROGRAFIN STUDY SMALL BOWEL FOLLOW THROUGH RESOLVING SBO NURSE AT BEDSIDE DC NG ALLOW CLEAR LIQUIDS CLEARED FOR DISCHARGE Plan discussed with: Patient My Orders My Orders Orders - SHELLY HANEY MD Procedure Category Date Status Time Kub Abdomen Single XY 03/09/25 Resulted View 08:01 Npo Except Ice Chips NINA 03/09/25 In Process 08:01 Npo (Nothing By DIET 03/09/25 Transmitted Mouth) Diet Breakfast SHELLY HANEY MD Mar 09, 2025 11:24
[2025-03-09] MEDS: ACETAMINOPHEN 325 MG TAB PO ONE (21:27)
--- NOTE | 2025-03-09 22:05 | DVHPN2 ---
Progress Note - Dictate Date Seen: Mar 09, 2025 Medical Necessity Reason Pt with a Central, PICC or Fol: No Subjective No new complaints Patient is resting comfortably Patient has had multiple bowel movements vital signs Vital Sign Date Time Temp Pulse Resp B/P (MAP) Pulse Ox O2 Delivery O2 Flow Rate FiO2 03/09/25 21:00 98.4 84 18 128/81 (97) 93 98.4 03/09/25 07:30 Room Air* 0 21 Total Intake and Output 03/08/25 03/08/25 03/09/25 15:00 23:00 07:00 Intake Total 450 ml 100 ml Balance 450 ml 100 ml medications Current Medications Medications Dose Ordered Sig/Giovani Route Start Time Stop Time Status Last Admin Dose Admin Sodium Chloride 1,000 ml @ 75 mls/hr [id number] IV 03/07/25 11:00 03/09/25 20:28 75 MLS/HR Ondansetron HCl 4 mg Q4HP PRN IV 03/07/25 11:00 03/08/25 20:27 4 MG Docusate Sodium 100 mg BIDPRN PRN PO 03/07/25 11:00 Morphine Sulfate 2 mg Q4HPRN PRN IV 03/07/25 11:00 03/09/25 20:24 2 MG Acetaminophen 650 mg Q6HP PRN [place] 03/07/25 11:00 Metronidazole 100 ml @ 100 mls/hr Q8HR IV 03/07/25 14:00 03/09/25 21:28 100 MLS/HR Hydralazine HCl 10 mg Q6HP PRN IV 03/07/25 11:00 Pantoprazole Sodium 40 mg DAILY IV 03/08/25 10:00 03/09/25 08:53 40 MG objective VITAL SIGNS: Afebrile. Stable signs with no evidence of pallor, cyanosis, or jaundice. NECK: Supple and nontender with no thyromegaly or lymphadenopathy. CHEST AND LUNGS: Clear. HEART: Within normal limits. ABDOMEN: Soft. NT/ND not an acute abdomen, and he has an NG tube in place. NEUROLOGIC: Awake and alert x3, no focal deficit EXTREMITIES: Unremarkable. laboratory and microbiology Laboratory Tests 03/08/25 05:14 Test 03/08/25 05:14 Range/Units Serum Glucose 132 H 74-106 mg/dL Problems(with codes): (1) Ileus (2) Hydrocele in adult (3) Small bowel obstruction Prognosis PLAN Continue conservative management NG tube has been DC Patient has been started on clear liquid diet Monitor labs Advance diet as tolerated Outpatient follow up with [facility] for elective colonoscopy Plan discussed with: Patient, Other (Dr Cooper Vallejo) NINO VALLEJO MD Mar 09, 2025 22:05
[2025-03-10] MEDS: SIMETHICONE 80 MG CHEWABLE TABLET PO PRN (03:12)
[2025-03-10 05:00] VITALS: BP 136/85; PULSE 82; RESP 18; TEMP 97.3; O2SAT 90
[2025-03-10 09:00] VITALS: BP 138/85; PULSE 82; RESP 18; TEMP 97.7; O2SAT 95
[2025-03-10] MEDS ORDERED: PANT40T PO (10:42)
[2025-03-10] MEDS ORDERED: METR-344 PO (10:42)
--- NOTE | 2025-03-10 10:43 | DVHPN2 ---
Reviewed: Care Plan, H&P, Labs, Medications, Previous Orders, Radiology Changes from previous H/P or p: No Changes Eyes: No Pain, No Vision change, No Conjunctivae inflammation, No Eyelid inflammation, No Other, No Redness ENT: No Ear pain, No Ear discharge, No Nose pain, No Nose discharge, No Nose congestion, No Mouth pain, No Mouth swelling, No Throat pain, No Throat swelling, No Other Cardiovascular: No Chest Pain, No Palpitations, No Orthopnea, No Paroxysmal Noc. Dyspnea, No Edema, No Lt Headedness, No Other Respiratory: No Cough, No Dry, No Shortness of breath, No SOB with excertion, No Wheezing, No Hemoptysis, No Pleuritic Pain, No Sputum, No Other Gastrointestinal: No Nausea, No Vomiting; Abdominal Pain; No Diarrhea, No Constipation, No Melena, No Hematochezia, No Other Genitourinary: No Dysuria, No Frequency, No Incontinence, No Hematuria, No Retention, No Other Musculoskeletal: No other, No neck pain, No shoulder pain, No arm pain, No back pain, No hand pain, No leg pain, No foot pain Skin: No Rash, No Lesions, No Jaundice, No Bruising, No Other Objective Vitals Vital Signs Date Time Temp Pulse Resp B/P (MAP) Pulse Ox O2 Delivery O2 Flow Rate FiO2 03/10/25 07:30 Room Air* 0 21 03/10/25 05:00 97.3 82 18 136/85 (102) 90 97.3 Intake/Output Intake and Output 03/10/25 07:00 Intake Total 2300 ml Balance 2300 ml Intake Oral 1100 ml IV Total 1200 ml # Voids 8 # Bowel Movements 6 Medications Current Medications Medications Dose Ordered Sig/Giovani Route Start Time Stop Time Status Last Admin Dose Admin Sodium Chloride 1,000 ml @ 75 mls/hr [id number] IV 03/07/25 11:00 03/09/25 20:28 75 MLS/HR Ondansetron HCl 4 mg Q4HP PRN IV 03/07/25 11:00 03/08/25 20:27 4 MG Docusate Sodium 100 mg BIDPRN PRN PO 03/07/25 11:00 Morphine Sulfate 2 mg Q4HPRN PRN IV 03/07/25 11:00 03/10/25 02:11 2 MG Acetaminophen 650 mg Q6HP PRN [place] 03/07/25 11:00 Metronidazole 100 ml @ 100 mls/hr Q8HR IV 03/07/25 14:00 03/10/25 05:05 100 MLS/HR Hydralazine HCl 10 mg Q6HP PRN IV 03/07/25 11:00 Pantoprazole Sodium 40 mg DAILY IV 03/08/25 10:00 03/10/25 08:56 40 MG Dimethicone 40 mg QIDP PRN PO 03/10/25 03:15 03/10/25 08:56 40 MG Laboratory Results Laboratory Tests 03/08/25 05:14 Urinalysis Test 03/07/25 06:40 Urine Color Light-yellow (Yellow) Urine Clarity Clear (Clear) Urine pH 7.5 (5.0-9.0) Urine Specific [place] 1.049 (1.001-1.035) Urine Protein Negative (Negative) Urine Ketones Negative (Negative) Urine Blood Negative /uL (Negative) Urine Nitrite Negative (Negative) Urine Bilirubin Negative (Negative) Urine Urobilinogen Normal mg/dL (Negative) Urine Leukocyte Esterase Negative /uL (Negative) Urine RBC 2 /hpf (0 - 3) Urine Microscopic WBC 3 /HPF (0-3) Urine Squamous Epithelial Cells Few /hpf (<5) Urine Bacteria None seen /hpf (None Seen) Urine Mucus Few (None Seen) Urine Yeast (Budding) Few /hpf (None Seen) Urine Glucose Normal mg/dL (Normal) Labs and/or images reviewed: Labs reviewed by me, Image(s) reviewed by me Assessment/Plan Assessment/Plan Acute small bowel obstruction resolving: GI consult by Dr. Joselo Vallejo and surgical consult by Dr. Cooper Vallejo appreciated small-bowel follow-through shows SBO resolving Large left hydrocele: Urology consult appreciated advised outpatient hydrocelectomy Hypertension Hypercholesterolemia Patient is tolerating regular diet, Plan discussed with: Patient Date of Service: Mar 10, 2025 Billing Provider: BANDAR BOWERS MD Common Visit Codes: [id number] INP/OBS CARE(HIGH) BANDAR BOWERS MD Mar 10, 2025 10:43
--- NOTE | 2025-03-10 10:48 | DVHDS2 ---
Discharge Summary Date of Admission Mar 07, 2025 at 10:46 Date of Discharge: Mar 10, 2025 Admitting Diagnosis Abdominal pain nausea vomiting and left scrotal swelling Wounds: None Labs/Diagnostic Data: Laboratory Results Test 03/08/25 05:14 03/07/25 15:22 03/07/25 10:49 03/07/25 07:00 White Blood Count 10.3 10^3/uL (4.4-10.8) Red Blood Count 5.65 10^6/uL (4.5-5.90) Hemoglobin 16.1 g/dL (13.5-17.5) Hematocrit 47.5 % (41.0-53.0) Mean Corpuscular Volume 84.1 fL (80.0-100.0) Mean Corpuscular Hemoglobin 28.5 pg (28.0-32.0) Mean Corpuscular Hemoglobin Concent 33.9 g/dL (32.0-36.0) Red Cell Distribution Width 14.7 % (11.8-14.3) Platelet Count 240 10^3/uL (140-450) Mean Platelet Volume 7.7 fL (6.9-10.8) Neutrophils (%) (Auto) 88.9 % (37.0-80.0) Lymphocytes (%) (Auto) 6.2 % (10.0-50.0) Monocytes (%) (Auto) 4.7 % (0.0-12.0) Eosinophils (%) (Auto) 0.1 % (0.0-7.0) Basophils (%) (Auto) 0.1 % (0.0-2.0) Neutrophils # (Auto) 9.1 10 ^3/uL (1.6-8.6) Lymphocytes # (Auto) 0.6 10 ^3/uL (0.4-5.4) Monocytes # (Auto) 0.5 10 ^3/uL (0-1.3) Eosinophils # (Auto) 0 10 ^3/uL (0-0.8) Basophils # (Auto) 0 10 ^3/uL (0-0.2) Nucleated Red Blood Cells 0.0 % Sodium Level 142 mmol/L (136-145) Potassium Level 3.9 mmol/L (3.5-5.1) Chloride Level 103 mmol/L (98-107) Carbon Dioxide Level 27 mmol/L (20-31) Anion Gap 12 (5-15) Blood Urea Nitrogen 12 mg/dL (9-23) Creatinine 1.03 mg/dL (0.700-1.30) Glomerular Filtration Rate Calc 81 mL/min (>90) BUN/Creatinine Ratio 11.7 (10.0-20.0) Serum Glucose 132 mg/dL (74-106) Calcium Level 10.0 mg/dL (8.7-10.4) Total Bilirubin 0.9 mg/dL (0.2-1.0) Aspartate Amino Transferase (AST) 25 U/L (13-40) Alanine Aminotransferase (ALT) 21 U/L (7-40) Alkaline Phosphatase 133 U/L (46-116) Total Protein 7.8 g/dL (5.7-8.2) Albumin 5.0 g/dL (3.2-4.8) Lactic Acid Level 1.4 mmol/L (0.4-2.0) Prothrombin Time 10.1 sec (9.3-11.8) Prothrombin Time INR 0.95 (0.9-1.15) Activated Partial Thromboplast Time 26.5 SEC (24.5-34.5) Troponin I High Sensitivity 3 ng/L (</=54) Lipase 34 U/L (12-53) Test 03/07/25 06:40 Urine Color Light-yellow (Yellow) Urine Clarity Clear (Clear) Urine pH 7.5 (5.0-9.0) Urine Specific [place] 1.049 (1.001-1.035) Urine Protein Negative (Negative) Urine Ketones Negative (Negative) Urine Blood Negative /uL (Negative) Urine Nitrite Negative (Negative) Urine Bilirubin Negative (Negative) Urine Urobilinogen Normal mg/dL (Negative) Urine Leukocyte Esterase Negative /uL (Negative) Urine RBC 2 /hpf (0 - 3) Urine Microscopic WBC 3 /HPF (0-3) Urine Squamous Epithelial Cells Few /hpf (<5) Urine Bacteria None seen /hpf (None Seen) Urine Mucus Few (None Seen) Urine Yeast (Budding) Few /hpf (None Seen) Urine Glucose Normal mg/dL (Normal) Other Laboratory Tests 03/08/25 05:14 Brief Hx & Hospital Course: 64-year-old male came in complaining of abdominal pain nausea and vomiting found to have small-bowel obstruction seen by GI DrShonda Spearr and surgeon Dr. Cooper Vallejo treated conservatively with NG suction IV fluids. CT abdomen pelvis showed small bowel obstruction. Patient symptoms resolved and he is eating regular diet at the time of discharge. Also had a hydrocele on the left side urology consult by advised outpatient follow up for hydrocelectomy. Patient will be discharged home and the patient [facility] Prescription for Flagyl and pantoprazole transmitted to the pharmacy Consults/Reason for consult GI Dr. Joselo Vallejo Surgeon Dr. Cooper Vallejo Urology Operations or Procedures CT abdomen pelvis without contrast Scrotal ultrasound Condition at Discharge: Fair Final Diagnosis/Problems List Acute small bowel obstruction resolving: GI consult by Dr. Joselo Vallejo and surgical consult by Dr. Cooper Vallejo appreciated small-bowel follow-through shows SBO resolving Large left hydrocele: Urology consult appreciated advised outpatient hydrocelectomy Hypertension Hypercholesterolemia Discharge Disposition: Home Discharge Instruct/Medications Diet: Regular Activity: Light activity Follow Up/Referral: [facility] Follow up with the Urology Dr. Whatley for the left hydrocele surgery Medications: Pantoprazole Flagyl [facility] Scheduled Amlodipine Besylate (Amlodipine Besylate), Unknown Dose PO DAILY, (Reported) Atorvastatin Calcium (Atorvastatin Calcium), Unknown Dose PO DAILY, (Reported) Gabapentin (Gabapentin), Unknown Dose PO BID, (Reported) Lisinopril (Lisinopril), Unknown Dose PO DAILY, (Reported) Metronidazole (Flagyl), 1 TAB PO TID Pantoprazole Sodium Sesquihydr (Pantoprazole Sodium), 40 MG PO DAILY 39 (Time Taken for discharge summary 39 minutes) Discharge Statement: "Patient was advised to return to the ER or call 911 if any headaches, dizziness, shortness of breath, chest pain, abdominal pain, bleeding, fevers, or worsening of medical condition. Patient was counseled about treatment plan, medications, possible side effects, patientverbalized understanding. All questions were answered to the best of my ability. This discharge took greater then 30 minutes in planning, reviewing documentation, counseling the patient, and discussing with other team members." ASSESSMENT ASSESSMENT Hospital Course Uneventful Assessment Acute small bowel obstruction resolving: GI consult by Dr. Joselo Vallejo and surgical consult by Dr. Cooper Vallejo appreciated small-bowel follow-through shows SBO resolving Large left hydrocele: Urology consult appreciated advised outpatient hydrocelectomy Hypertension Hypercholesterolemia Date of Service: Mar 10, 2025 Billing Provider: BANDAR BOWERS MD Common Visit Codes: 70847-EQG/OBS DISCH DAY >30min BANDAR BOWERS MD Mar 10, 2025 10:48
[2025-03-10 11:51] VITALS: TEMP 36.5
--- NOTE | 2025-03-10 22:16 | DVHPN2 ---
Progress Note - Dictate Date Seen: Mar 10, 2025 Medical Necessity Reason Pt with a Central, PICC or Fol: No Subjective No new complaints Patient is resting comfortably Patient has had multiple bowel movements Patient is tolerating a full liquid diet vital signs Vital Sign Date Time Temp Pulse Resp B/P (MAP) Pulse Ox O2 Delivery O2 Flow Rate FiO2 03/10/25 11:51 36.5 03/10/25 09:00 82 18 138/85 (102) 95 03/10/25 07:30 Room Air* 0 21 Total Intake and Output 03/09/25 03/09/25 03/10/25 15:00 23:00 07:00 Intake Total 100 ml 1300 ml 900 ml Balance 100 ml 1300 ml 900 ml objective VITAL SIGNS: Afebrile. Stable signs with no evidence of pallor, cyanosis, or jaundice. NECK: Supple and nontender with no thyromegaly or lymphadenopathy. CHEST AND LUNGS: Clear. HEART: Within normal limits. ABDOMEN: Soft. NT/ND not an acute abdomen, and he has an NG tube in place. NEUROLOGIC: Awake and alert x3, no focal deficit EXTREMITIES: Unremarkable. laboratory and microbiology Laboratory Tests 03/08/25 05:14 Test 03/08/25 05:14 Range/Units Serum Glucose 132 H 74-106 mg/dL Problems(with codes): (1) Ileus (2) Hydrocele in adult (3) Small bowel obstruction Prognosis Plan Patient is requesting a discharge home and he is cleared for discharge from GI point of view Patient was advised to stay on a soft mechanical diet he stated [facility] was [facility] to arrange repeat surveillance colonoscopy Dietary modifications were discussed, increase fluid and fiber intake and return to ER if symptoms recur Plan discussed with: Patient, Other (Nurse) NINO HANEY MD Mar 10, 2025 22:16
== END 2025-03-10 12:25 | disposition home or self-care (01) | DRG 390 ==
LOC: ER 06:29 → OVERFLOW 10:46 → EAST 21:56
PROVIDERS: ADMIT Family Medicine; ATTEND Family Medicine
PROC: 0D9670Z Drainage of Stomach with Drainage Device, Via Natural or Artificial Opening (ICD-10-PCS; principal; 2025-03-07)
DX: K56.609 Unspecified intestinal obstruction, unspecified as to partial versus complete obstruction (principal); I10 Essential (primary) hypertension; N43.3 Hydrocele, unspecified; E78.00 Pure hypercholesterolemia, unspecified
CPT/HCPCS: 36415; 71045; 74018; 74177; 74250; 76870; 80053; 81001; 83605; 83690; 84484; 85025; 85610; 85730; 96361; 96374; 96375; 99291; G0378; J2405; J2470; J3490